=== PATIENT | female | born 1990 | race Caucasian/White ===

== ENCOUNTER 2019-01-05 06:43 | Emergency (ER) | payer MEDICAID, SELFPAY ==
[2019-01-05 06:45] VITALS: BP 139/76; PULSE 85; RESP 18; TEMP 36.5; O2SAT 96
[2019-01-05 06:49] VITALS: BP 139/76; PULSE 85; RESP 18; TEMP 36.5; O2SAT 96; BMI 38.4
--- NOTE | 2019-01-05 06:53 | XR_ITS ---
XR chest 2V HISTORY: ITS.REASON: cough ORDERING PHYSICIAN: Anthony Solis MD PATIENT AGE: 28 years COMPARISON: 11/04/2016 FINDINGS: The cardiomediastinal silhouette and pulmonary vascularity are within normal limits. The lungs are clear without infiltrates, suspicious nodules, or pleural effusions. No acute bony abnormalities. IMPRESSION: Negative chest, no acute finding
[2019-01-05 07:05] VITALS: PULSE 78; PULSE 81
[2019-01-05 07:06] LABS: Microscopic, Urine URINE MICROSCOPIC (MICROSCOPIC)
[2019-01-05 07:08] LABS: Appearance,Urine CLEAR (Clear); Bilirubin,Urine Negative (Negative); Blood, Urine Negative (Negative); Color,Urine YELLOW (Yellow); Glucose,Urine (UA) Negative (Negative); Ketones,Urine Negative (Negative); Leukocyte Esterase,Urine Negative (Negative); Nitrate,Urine Negative (Negative); Protein,Urine Negative (Negative); Specific Gravity, Urine 1.025 (1.005-1.030); Urobilinogen,Urine 0.2 EU/dl (0.2)
[2019-01-05 07:13] LABS: Urine Pregnancy, HCG Qual. Negative (Negative)
[2019-01-05 07:19] LABS: Bacteria,Urine Trace /lpf
[2019-01-05 07:24] LABS: Strep Scrn Group A (Rapid) Negative (Negative)
--- NOTE | 2019-01-05 07:28 | HMH.EDURI ---
ED Disposition Clinical Impression: Bronchitis Disposition: Home, Self-Care Condition on Discharge: Good Instructions: DI for Acute Bronchitis Additional Instructions: fluids and please stop smoking and use meds Prescriptions: predniSONE [Prednisone 20mg Tab] 20 mg PO BID #10 tab Benzonatate [Tessalon Perle 100mg Cap] 100 mg PO TID #30 cap Azithromycin [Zithromax 250mg tab] 250 mg PO DIRECTED #6 tab Referrals: Anthony Solis MD [Primary Care Provider] - - Critical Care Critical Care Time: No Attestation: On 01/05/19, the high probability of a clinically significant, sudden or life threatening deterioration of the following system(s) required my full and direct attention, intervention and personal management. The time I documented below is in addition to time spent performing reported procedures but includes the following listed in this critical care notation. Medical Decision Making - Medical Records Medical records reviewed: Yes: I reviewed the patient's medical records. - Eddie Inquiry Pt receiving controlled substance: No Vital Signs: 01/05/19 06:45 01/05/19 06:49 01/05/19 07:05 Temperature 97.7 F 97.7 F Temperature Source Oral Oral Pulse Rate 81 Pulse Rate [Right Radial] 85 85 Respiratory Rate 18 18 Blood Pressure [Right Arm] 139/76 139/76 Blood Pressure Mean [Right Arm] 97 97 02 Sat by Pulse Oximetry 96 96 - Lab Data Lab results reviewed: Yes: I reviewed the patient's lab results. Lab Results 01/05/19 07:00: Urine Color Yellow, Urine Appearance Clear, Urine pH 6.0, Ur Specific [place] 1.025, Urine Protein Negative, Urine Glucose (UA) Negative, Urine Ketones Negative, Urine Blood Negative, Urine Nitrate Negative, Urine Bilirubin Negative, Urine Urobilinogen 0.2, Ur Leukocyte Esterase Negative, Urine RBC None, Urine WBC None, Ur Squamous Epith Cells 5-10, Urine Bacteria Trace 01/05/19 07:00: Urine HCG, Qual Negative 01/05/19 07:00: Influenza Type A Ag Negative, Influenza Type B Ag Negative 01/05/19 07:00: Group A Strep Rapid Negative Orders (Tests/Meds): ED MEDICATIONS Discontinued Medications Generic Name Dose Route Start Last Admin Trade Name Freq PRN Reason Stop Dose Admin Albuterol/Ipratropium 3 ml 01/05/19 06:54 01/05/19 07:05 Duoneb 3ml Neb IH 01/05/19 06:55 3 ml ONCE ONE Administration Methylprednisolone Sodium Succinate 125 mg 01/05/19 06:54 01/05/19 06:58 Solu-Medrol 125mg/2ml Vial IM 01/05/19 06:55 125 mg ONCE ONE Administration ORDERS Category Date Time Status XR chest 2V Stat Exams 01/05/19 06:53 Taken Strep Screen Confirmation Stat Micro 01/05/19 07:00 Received - Radiology Data #1 Image(s): Chest Image Reviewed: Yes I reviewed the patient's radiology image Preliminary Findings: Abnormal (perihilar changes ) URI/Sore Throat HPI - General Chief Complaint: Upper Respiratory Infection Stated Complaint: head and chest congestion has had fever Time Seen by Provider: 01/05/19 07:00 Mode of Arrival: Ambulatory Source of Information: Patient, Medical Record Limitations: No Limitations Description of Symptoms (Recalled from ER Triage Doc. by RN): pt states she has had cough, congestion, sore throat and fever up to 101 tonight. pt states she took tylenol earlier for her fever and it came down. - History of Present Illness MD Complaint: cough, nasal congestion Onset (ago): day(s) Severity: moderate Able to tolerate fluids by mouth: Yes Associated symptoms: denies other symptoms Treatments prior to arrival: acetaminophen - Related Data Home Medications Medication Instructions Recorded Confirmed Albuterol Sulfate [Albuterol HFA 2 puffs IH Q6HP PRN 10/14/18 01/05/19 Inhaler] Previous Rx's Medication Instructions Recorded Azithromycin [Zithromax 250mg 250 mg PO DIRECTED #6 tab 01/05/19 tab] Benzonatate [Tessalon Perle 100mg 100 mg PO TID #30 cap 01/05/19 Cap] pr
--- NOTE | 2019-01-05 07:37 | ED_ITS ---
ED Disposition Clinical Impression: Bronchitis Disposition: Home, Self-Care Condition on Discharge: Good Instructions: DI for Acute Bronchitis Additional Instructions: fluids and please stop smoking and use meds Prescriptions: predniSONE [Prednisone 20mg Tab] 20 mg PO BID #10 tab Benzonatate [Tessalon Perle 100mg Cap] 100 mg PO TID #30 cap Azithromycin [Zithromax 250mg tab] 250 mg PO DIRECTED #6 tab Referrals: Anthony Solis MD [Primary Care Provider] - - Critical Care Critical Care Time: No Attestation: On 01/05/19, the high probability of a clinically significant, sudden or life threatening deterioration of the following system(s) required my full and direct attention, intervention and personal management. The time I documented below is in addition to time spent performing reported procedures but includes the following listed in this critical care notation. Medical Decision Making - Medical Records Medical records reviewed: Yes: I reviewed the patient's medical records. - Eddie Inquiry Pt receiving controlled substance: No Vital Signs: 01/05/19 06:45 01/05/19 06:49 01/05/19 07:05 Temperature 97.7 F 97.7 F Temperature Source Oral Oral Pulse Rate 81 Pulse Rate [Right Radial] 85 85 Respiratory Rate 18 18 Blood Pressure [Right Arm] 139/76 139/76 Blood Pressure Mean [Right Arm] 97 97 02 Sat by Pulse Oximetry 96 96 - Lab Data Lab results reviewed: Yes: I reviewed the patient's lab results. Lab Results 01/05/19 07:00: Urine Color Yellow, Urine Appearance Clear, Urine pH 6.0, Ur Specific [place] 1.025, Urine Protein Negative, Urine Glucose (UA) Negative, Urine Ketones Negative, Urine Blood Negative, Urine Nitrate Negative, Urine Bilirubin Negative, Urine Urobilinogen 0.2, Ur Leukocyte Esterase Negative, Urine RBC None, Urine WBC None, Ur Squamous Epith Cells 5-10, Urine Bacteria Trace 01/05/19 07:00: Urine HCG, Qual Negative 01/05/19 07:00: Influenza Type A Ag Negative, Influenza Type B Ag Negative 01/05/19 07:00: Group A Strep Rapid Negative Orders (Tests/Meds): ED MEDICATIONS Discontinued Medications Generic Name Dose Route Start Last Admin Trade Name Freq PRN Reason Stop Dose Admin Albuterol/Ipratropium 3 ml 01/05/19 06:54 01/05/19 07:05 Duoneb 3ml Neb IH 01/05/19 06:55 3 ml ONCE ONE Administration Methylprednisolone Sodium Succinate 125 mg 01/05/19 06:54 01/05/19 06:58 Solu-Medrol 125mg/2ml Vial IM 01/05/19 06:55 125 mg ONCE ONE Administration ORDERS Category Date Time Status XR chest 2V Stat Exams 01/05/19 06:53 Taken Strep Screen Confirmation Stat Micro 01/05/19 07:00 Received - Radiology Data #1 Image(s): Chest Image Reviewed: Yes I reviewed the patient's radiology image Preliminary Findings: Abnormal (perihilar changes ) URI/Sore Throat HPI - General Chief Complaint: Upper Respiratory Infection Stated Complaint: head and chest congestion has had fever Time Seen by Provider: 01/05/19 07:00 Mode of Arrival: Ambulatory Source of Information: Patient, Medical Record Limitations: No Limitations Description of Symptoms (Recalled from ER Triage Doc. by RN): pt states
[2019-01-05 07:45] VITALS: BP 146/86; PULSE 86; RESP 18; TEMP 36.3; O2SAT 100
== END 2019-01-05 07:46 | disposition home or self-care (01) ==
PROVIDERS: Emergency Provider Emergency Medicine; PCP Emergency Medicine
DX: J20.9 Acute bronchitis, unspecified (principal); F17.210 Nicotine dependence, cigarettes, uncomplicated
CPT/HCPCS: 71046; 81001; 81025; 87275; 87276; 87430; 96372; 99283

== ENCOUNTER → 2019-01-12 13:20 | Outpatient (CLI) | payer MEDICAID, SELFPAY ==
[2019-01-12 14:01] LABS: Basophils # 0.1 K/mm3 (0-0.2); Basophils % 0.6 % (0.1-2.0); Eosinophils # 0.2 K/mm3 (0.0-0.4); Eosinophils % 1.8 % (0.1-12.0); Hematocrit 47.2 % (37.0-47.0); Hemoglobin 14.9 g/dL (12.2-16.2); Lymphocytes # 3.4 K/mm3 (0.7-4.5); Lymphocytes % 37.4 % (10-50); Mean Corpuscular HGB Conc 31.7 g/dL (31.8-35.4); Mean Corpuscular Hemoglobin 28.3 pg (27.0-31.2); Mean Corpuscular Volume 89.4 fl (81-99); Mean Platelet Volume 8.3 fl (7.4-10.4); Monocytes # 0.5 K/mm3 (0.1-1.0); Monocytes % 5.8 % (1.7-9.3); Neutrophils % 54.5 % (37.0-80.0); Platelet Count 360 K/mm3 (142-424); Red Blood Count 5.28 M/mm3 (4.20-5.40); White Blood Count 9.2 K/mm3 (4.8-10.8)
[2019-01-12 15:04] LABS: Alanine Aminotransferase 47 U/L (12-78); Albumin Level 3.6 gm/dL (3.4-5.0); Albumin/Globulin Ratio 1.3 (1.1-1.8); Alkaline Phosphatase 102 U/L (46-116); Anion Gap 13.1 mEq/L (5-15); Aspartate Amino Transferase 19 U/L (15-37); Bilirubin,Total 0.4 mg/dL (0.2-1.0); Blood Urea Nitrogen 12 mg/dL (7-18); Calcium 8.6 mg/dL (8.5-10.1); Carbon Dioxide 26 mmol/L (21.0-32.0); Chloride 105 mmol/L (98-107); Chol/HDL Ratio 2.3 (1-3.5); Cholesterol 154 mg/dL (140-200); Creatinine,Serum 0.71 mg/dL (0.55-1.02); Estimated Glomerular Filt Rate 100 ml/min (>60); Free T4 (Free Thyroxine) 1.02 ng/dl (0.76-1.46); GFR (African American) 120 ML/MIN (>60); Globulin 2.8 gm/dl (1.3-3.2); Glucose 93 mg/dL (74-106); HDL Cholesterol 68 mg/dL (29-89); LDL Cholesterol 78 mg/dL (0-130); Potassium 4.1 mmoL/L (3.5-5.1); Sodium 140 mmol/L (136-145); Thyroid Stimulating Hormone 1.37 uIU/ml (0.358-3.740); Total Protein,Serum 6.4 gm/dL (6.4-8.2); Triglycerides 42 mg/dL (30-200); VLDL Cholesterol 8 mg/dL (0-40)
[2019-01-14 20:44] LABS: Vitamin D 25 Hydroxy 30.1 ng/mL (30.0-100.0)
== END ==
PROVIDERS: Visit Provider Emergency Medicine
DX: R53.83 Other fatigue (principal)
CPT/HCPCS: 80053; 80061; 82652; 84439; 84443; 85025

== ENCOUNTER → 2020-01-18 15:46 | Outpatient (CLI) | payer MEDICAID, SELFPAY ==
[2020-01-18 18:13] LABS: HCG Qualitative, Serum Negative (Negative)
== END ==
PROVIDERS: Visit Provider Nurse Practitioner Obstetrics & Gynecology
DX: Z34.90 Encounter for supervision of normal pregnancy, unspecified, unspecified trimester (principal)
CPT/HCPCS: 36415; 84703

== ENCOUNTER 2020-02-29 23:00 | Emergency (ER) | payer MEDICAID, SELFPAY ==
[2020-02-29 23:12] VITALS: BP 126/60; PULSE 86; RESP 16; TEMP 36.9; O2SAT 98; BMI 39.2
--- NOTE | 2020-02-29 23:35 | HMH.EDWNDL ---
ED Disposition Clinical Impression: Laceration Disposition: Home, Self-Care Condition on Discharge: Good Instructions: DI for Laceration Repair Additional Instructions: suture out 8-10 days Referrals: Anthony Solis MD [Primary Care Provider] - - Critical Care Critical Care Time: No Attestation: On 02/29/20, the high probability of a clinically significant, sudden or life threatening deterioration of the following system(s) required my full and direct attention, intervention and personal management. The time I documented below is in addition to time spent performing reported procedures but includes the following listed in this critical care notation. Medical Decision Making - Medical Records Medical records reviewed: Yes: I reviewed the patient's medical records. - Eddie Inquiry Pt receiving controlled substance: No Vital Signs: 02/29/20 23:12 Temperature 98.5 F Temperature Source Oral Pulse Rate [Right] 86 Respiratory Rate 16 Blood Pressure [Right Arm] 126/60 Blood Pressure Mean [Right Arm] 82 Blood Pressure Source [Right Arm] Automatic Cuff Blood Pressure Position [Right Arm] Sitting 02 Sat by Pulse Oximetry 98 Oxygen Delivery Method Room Air Orders (Tests/Meds): ED MEDICATIONS Discontinued Medications Generic Name Dose Route Start Last Admin Trade Name Freq PRN Reason Stop Dose Admin Tetanus/Diphtheria Toxoids 0.5 ml 02/29/20 23:20 02/29/20 23:24 Tenivac 0.5ml Syringe IM 02/29/20 23:21 0.5 ml .ONCE ONE Administration Wound/Laceration HPI - General Chief Complaint: Wound/Laceration Stated Complaint: AO 02/29/20 22:30 lacertion left hand Time Seen by Provider: 02/29/20 23:20 Mode of Arrival: Ambulatory Source of Information: Patient, Medical Record Limitations: No Limitations Description of Symptoms (Recalled from ER Triage Doc. by RN): Pt had nail give her a lac between pinky and ring fingers on left hand, bleeding is controlled at this time. - History of Present Illness HPI narrative: lac lt hand at work -1 cm Onset (ago): hour(s) Extremity Location: Left: hand Place: work Patient tetanus UTD: No Context: accidental Associated symptoms: none - Related Data Home Medications Medication Instructions Recorded Confirmed Albuterol Sulfate [Albuterol HFA 2 puffs IH Q6HP PRN 10/14/18 02/29/20 Inhaler] Allergies Allergy/AdvReac Type Severity Reaction Status Date / Time Penicillins [PENICILLINS] Allergy Intermediate I-HIVES Verified 05/18/19 14:00 From MUSHROOMS (FOOD/DRUG) Allergy Intermediate I-HIVES Uncoded 05/11/19 14:12 RASPBERRY (FOOD) Allergy Intermediate I-HIVES Uncoded 05/11/19 14:12 [facility] History - Hepatitis A Screen Drug use history?: No High risk sexual behaviors?: No History of sexually transmitted infection?: No Currently employed?: No Childcare worker?: No Do you have indoor plumbing?: Yes Do you have electricity?: Yes Attestation statement:: This patient has been screened for Hepatitis A risk factors. I have reviewed the patient's past medical history: Yes Medical History: Reports:: Asthma Denies:: Cancer, Diabetes Mellitus Type 1, Diabetes Mellitus Type 2, MRSA Comment: pcos Laterality Cases: Left: Arthroscopy Knee Other Surgeries: Yes: Other Amputation: No Fractures: No Comment: wisdom teeth - Social History Smoking Status: Current every day smoker Tobacco Type: cigarettes # Packs/Day (cigarettes): 1 Alcohol Intake: never Alcohol Intake Frequency:: a few times a month Substance Use Type: marijuana Last Used Substance: unknown Occupational Status: employed Housing: apartment Family Hx:: Asthma, Cancer, Diabetes, Heart Attack, Hypertension ROS Obtained: Yes All systems reviewed & no additional complaints - Constitutional Constitutional: Denies fever(s) - Eyes Eyes: Denies change in vision - ENT Ears, Nose, Mouth, and Throat: Denies sore throat - Cardiovascular Cardiovascular: Denies ches
--- NOTE | 2020-02-29 23:35 | PC.NURSE ---
Lab at bedside to collect UDS for workman comp.
[2020-02-29 23:37] VITALS: BP 128/64; PULSE 82; RESP 16; TEMP 36.9; O2SAT 99
== END 2020-02-29 23:50 | disposition home or self-care (01) ==
PROVIDERS: Emergency Provider Emergency Medicine; PCP Emergency Medicine
DX: S61.412A Laceration without foreign body of left hand, initial encounter (principal); W45.0XXA Nail entering through skin, initial encounter; Y92.69 Other specified industrial and construction area as the place of occurrence of the external cause; Y99.0 Civilian activity done for income or pay; Z23 Encounter for immunization; F17.210 Nicotine dependence, cigarettes, uncomplicated
CPT/HCPCS: 12001; 90471; 90714; 99282

== ENCOUNTER 2020-03-25 06:53 | Emergency (ER) | payer MEDICAID, SELFPAY ==
[2020-03-25 06:56] VITALS: BP 118/78; PULSE 68; RESP 16; TEMP 36.7; O2SAT 98; BMI 39.9
--- NOTE | 2020-03-25 07:10 | HMH.EDGENADL ---
ED Disposition Clinical Impression: Pain, dental, Gingival disease, Obesity (BMI 30-39.9) Disposition: Home, Self-Care Condition on Discharge: Good Instructions: DI for Dental Pain Additional Instructions: use meds and see pcp and dentist for follow up Prescriptions: clindamycin HCL [Clindamycin HCl 300mg Cap] 300 mg PO Q8 #21 cap Transmission Status: Pending to [facility] #[id number] Referrals: nAthony Solis MD [Primary Care Provider] - - Critical Care Critical Care Time: No Attestation: On 03/25/20, the high probability of a clinically significant, sudden or life threatening deterioration of the following system(s) required my full and direct attention, intervention and personal management. The time I documented below is in addition to time spent performing reported procedures but includes the following listed in this critical care notation. Medical Decision Making - Medical Records Medical records reviewed: Yes: I reviewed the patient's medical records. - Eddie Inquiry Pt receiving controlled substance: No Vital Signs: 03/25/20 06:56 Temperature 98.1 F Temperature Source Oral Pulse Rate [Left Radial] 68 Respiratory Rate 16 Blood Pressure [Right Arm] 118/78 Blood Pressure Mean [Right Arm] 91 Blood Pressure Position [Right Arm] Sitting 02 Sat by Pulse Oximetry 98 Oxygen Delivery Method Room Air - Lab Data Lab results reviewed: Yes: I reviewed the patient's lab results. General Adult HPI - General Chief complaint: PAIN Stated complaint: two teeth extracted on . 03/22 now in pain Time Seen by Provider: 03/25/20 07:10 Mode of Arrival: Ambulatory Source of Information: Patient, Medical Record Limitations: No Limitations Description of Symptoms (Recalled from ER Triage Doc. by RN): to ed per pvt with c/o pain and swelling lt lower jaw area states teeth extracted . denies fever chills nausea, vomiting - History of Present Illness HPI narrative: recent dental extraction and has pain and swelling - no other c/o Onset (ago): day(s) Severity: moderate Associated symptoms: denies other symptoms Treatments prior to arrival: none - Related Data Previous Rx's Medication Instructions Recorded albuterol sulfate 90 mcg/actuation 2 puff INHALATION Q6HP PRN #18 g 03/21/20 aerosol inhaler bupropion HCl 75 mg tablet 75 mg PO BID #60 tab 03/21/20 metformin 500 mg tablet 500 mg PO DAILY #90 tab 03/21/20 phentermine 37.5 mg tablet 37.5 mg PO DAILY #30 tab 03/21/20 clindamycin HCL [Clindamycin HCl 300 mg PO Q8 #21 cap 03/25/20 300mg Cap] Allergies Allergy/AdvReac Type Severity Reaction Status Date / Time Penicillins [PENICILLINS] Allergy Intermediate I-HIVES Verified 03/21/20 11:15 From MUSHROOMS (FOOD/DRUG) Allergy Intermediate I-HIVES Uncoded 03/21/20 11:15 RASPBERRY (FOOD) Allergy Intermediate I-HIVES Uncoded 03/21/20 11:15 [facility] History - Hepatitis A Screen Drug use history?: No High risk sexual behaviors?: No History of sexually transmitted infection?: No Currently employed?: No Childcare worker?: No Do you have indoor plumbing?: Yes Do you have electricity?: Yes Attestation statement:: This patient has been screened for Hepatitis A risk factors. I have reviewed the patient's past medical history: Yes Medical History: Reports:: Asthma Denies:: Cancer, Diabetes Mellitus Type 1, Diabetes Mellitus Type 2, MRSA Comment: pcos Laterality Cases: Left: Arthroscopy Knee Other Surgeries: Yes: Other Amputation: No Fractures: No Comment: wisdom teeth - Social History Smoking Status: Current every day smoker Tobacco Type: cigarettes # Packs/Day (cigarettes): 1 Alcohol Intake: never Alcohol Intake Frequency:: a few times a month Substance Use Type: marijuana Occupational Status: employed Housing: apartment Family Hx:: Asthma, Cancer, Diabetes, Heart Attack, Hypertension ROS Obtained: Yes All systems reviewed & no additional complaints - Constit
[2020-03-25 07:29] VITALS: BP 135/74; PULSE 78; RESP 16; TEMP 36.6; O2SAT 98
== END 2020-03-25 07:30 | disposition home or self-care (01) ==
PROVIDERS: Emergency Provider Emergency Medicine; PCP Emergency Medicine
DX: K06.9 Disorder of gingiva and edentulous alveolar ridge, unspecified (principal); K08.89 Other specified disorders of teeth and supporting structures; E11.9 Type 2 diabetes mellitus without complications; J45.909 Unspecified asthma, uncomplicated; F17.210 Nicotine dependence, cigarettes, uncomplicated; Z88.0 Allergy status to penicillin; Z79.899 Other long term (current) drug therapy; E66.9 Obesity, unspecified; Z68.39 Body mass index [BMI] 39.0-39.9, adult
CPT/HCPCS: 99281

== ENCOUNTER 2020-04-27 02:33 | Emergency (ER) | payer MEDICAID, SELFPAY ==
[2020-04-27 02:34] VITALS: BP 133/72; PULSE 85; RESP 16; TEMP 37.1; O2SAT 98; BMI 38.4
[2020-04-27 02:59] VITALS: BMI 38.4
--- NOTE | 2020-04-27 03:04 | XR_ITS ---
PROCEDURE: XR CHEST 2V CLINICAL HISTORY: soa Shortness of air, congestion, smoker COMPARISON: CR CXR CHEST(2 VIEWS-NOT PORTABLE) from 09/20/2014 CR CXR CHEST(2 VIEWS-NOT PORTABLE) from 11/04/2016 CR Chest from 01/05/[address] ABDOMEN PELVIS W CON from 03/27/2019 FINDINGS: The cardiomediastinal silhouette and pulmonary vascularity are within normal limits. There is an 8 mm opacity overlying the right lower lobe. The remaining lungs are clear. No acute bony abnormalities. IMPRESSION: 1. No acute finding. 2. 8 mm right lower lobe nodule. This may correspond to a nodular opacity seen on prior CT of the abdomen. Stability may be confirmed with follow-up CT. Dictated by: Raoul Morgan MD 04/27/2020 06:14 Raoul Morgan MD in [place] 04/27/2020 06:14
[2020-04-27 03:10] LABS: Basophils # 0.1 K/mm3 (0-0.2); Basophils % 0.4 % (0.1-2.0); Eosinophils # 0.2 K/mm3 (0.0-0.4); Eosinophils % 1.6 % (0.1-12.0); Hematocrit 48.7 % (37.0-47.0); Hemoglobin 16.9 g/dL (12.2-16.2); Lymphocytes % 6.9 % (10-50); Mean Corpuscular HGB Conc 34.7 g/dL (31.8-35.4); Mean Corpuscular Hemoglobin 30.4 pg (27.0-31.2); Mean Corpuscular Volume 87.8 fl (81-99); Mean Platelet Volume 8.1 fl (7.4-10.4); Monocytes # 0.5 K/mm3 (0.1-1.0); Monocytes % 3.4 % (1.7-9.3); Neutrophils # 13.1 K/mm3 (1.8-7.8); Neutrophils % 87.7 % (37.0-80.0); Platelet Count 253 K/mm3 (142-424); Red Blood Count 5.55 M/mm3 (4.20-5.40); Red Cell Distribution Width 13.3 % (11.5-17.5); White Blood Count 14.9 K/mm3 (4.8-10.8)
[2020-04-27 03:15] LABS: Alanine Aminotransferase 36 U/L (12-78); Albumin Level 4.7 g/dl (3.5-5.0); Albumin/Globulin Ratio 1.6 (1.1-1.8); Alkaline Phosphatase 99 U/L (38-126); Anion Gap 12.9 mEq/L (5-15); Aspartate Amino Transferase 33 U/L (14-36); Bilirubin,Total 0.6 mg/dl (0.2-1.3); Blood Urea Nitrogen 8 mg/dl (7-17); Calcium 9.8 mg/dl (8.4-10.2); Carbon Dioxide 25 mmol/L (22.0-30.0); Chloride 103 mmol/L (98-107); Creatinine Clearance Estimated 262 mL/min (50-200); Estimated Glomerular Filt Rate 120 ml/min (>60); GFR (African American) 145 ML/MIN (>60); Glucose 139 mg/dl (74-100); MANUAL DIFFERENTIAL MANUAL DIFFERENTIAL (MANUAL DIFF); Potassium 3.9 mmoL/L (3.5-5.1); Sodium 137 mmol/L (136-145); Total Protein,Serum 7.7 g/dl (6.3-8.2)
[2020-04-27 03:18] LABS: Urine Pregnancy, HCG Qual. Negative (Negative)
[2020-04-27 03:22] LABS: Strep Scrn Group A (Rapid) Negative (Negative)
[2020-04-27 03:27] LABS: Eosinophils % 2 % (0-3); Lymphocytes % 17 % (10-50); Monocytes % 6 % (2-9); Neutrophils % 74 % (42-76); Platelet Estimate Normal; RBC Morphology Normal; Total Cells Counted 100
[2020-04-27 03:34] VITALS: BP 129/83; PULSE 73; RESP 16; TEMP 37.4; O2SAT 99
--- NOTE | 2020-04-27 04:03 | HMH.EDURI ---
ED Disposition Clinical Impression: Pharyngitis Qualifiers: Pharyngitis/tonsillitis etiology: unspecified etiology Qualified Code(s): J02.9 - Acute pharyngitis, unspecified Disposition: Home, Self-Care Condition on Discharge: Good Instructions: DI for Acute Bronchitis Additional Instructions: fids and see pcp for follow up Prescriptions: levoFLOXacin [Levaquin 500mg tab] 500 mg PO DAILY #7 tab Transmission Status: Pending to [facility] #[id number] Referrals: Anthnoy Solis MD [Primary Care Provider] - - Critical Care Critical Care Time: No Attestation: On 04/27/20, the high probability of a clinically significant, sudden or life threatening deterioration of the following system(s) required my full and direct attention, intervention and personal management. The time I documented below is in addition to time spent performing reported procedures but includes the following listed in this critical care notation. Medical Decision Making - Medical Records Medical records reviewed: Yes: I reviewed the patient's medical records. - Eddie Inquiry Pt receiving controlled substance: No Vital Signs: 04/27/20 02:34 04/27/20 03:34 Temperature 98.7 F 99.4 F Temperature Source Oral Oral Pulse Rate [Right Radial] 85 73 Respiratory Rate 16 16 Blood Pressure [Right Arm] 133/72 129/83 Blood Pressure Mean [Right Arm] 92 98 Blood Pressure Source [Right Arm] Automatic Cuff Automatic Cuff Blood Pressure Position [Right Arm] Sitting Supine 02 Sat by Pulse Oximetry 98 99 Oxygen Delivery Method Room Air Room Air - Lab Data Lab results reviewed: Yes: I reviewed the patient's lab results. Lab Results 04/27/20 02:46: Influenza Type A Ag Negative, Influenza Type B Ag Negative 04/27/20 02:46: Group A Strep Rapid Negative 04/27/20 02:56: WBC 14.9 H, RBC 5.55 H, Hgb 16.9 H, Hct 48.7 H, MCV 87.8, MCH 30.4, MCHC 34.7, RDW 13.3, Plt Count 253, MPV 8.1, Neut % (Auto) 87.7 H, Lymph % (Auto) 6.9 L, [place] % (Auto) 3.4, Eos % (Auto) 1.6, Baso % (Auto) 0.4, Neut # (Auto) 13.1 H, Lymph # (Auto) 1.0, [place] # (Auto) 0.5, Eos # (Auto) 0.2, Baso # (Auto) 0.1, Total Counted 100, Neutrophils % (Manual) 74, Lymphocytes % (Manual) 17, Monocytes % (Manual) 6, Eosinophils % (Manual) 2, Basophils % (Manual) 1.0, Platelet Estimate Normal, RBC Morphology Normal 04/27/20 02:56: Sodium 137, Potassium 3.9, Chloride 103, Carbon Dioxide 25, Anion Gap 12.9, BUN 8, Creatinine 0.60, Estimated Creat Clear 262, Estimated GFR 120, Est GFR ( Amer) 145, Glucose 139 H, Calcium 9.8, Total Bilirubin 0.6, AST 33, ALT 36, Alkaline Phosphatase 99, Total Protein 7.7, Albumin 4.7, Globulin 3.0, Albumin/Globulin Ratio 1.6 04/27/20 03:09: Urine HCG, Qual Negative Result diagrams: 04/27/20 02:56 04/27/20 02:56 Orders (Tests/Meds): ED MEDICATIONS Generic Name Dose Route Start Last Admin Trade Name Freq PRN Reason Stop Dose Admin Sodium Chloride 1,000 mls @ 999 mls/hr 04/27/20 03:45 04/27/20 03:37 Sod Chlor 0.9% 1000ml Bag IV 04/27/20 04:45 999 mls/hr .Q1H1M FRANCES Administration Levofloxacin 500 mg 04/27/20 04:14 Levaquin 500mg Tab PO 04/27/20 04:15 ONCE ONE Protocol ORDERS Category Date Time Status XR chest 2V Stat Exams 04/27/20 03:04 Taken Covid-19 Nasal PCR Sendout [facility] Stat Lab 04/27/20 03:25 Received Strep Screen Confirmation Stat Micro 04/27/20 02:46 Received - Radiology Data #1 Image(s): Chest Image Reviewed: Yes I reviewed the patient's radiology image Preliminary Findings: Normal/NAD URI/Sore Throat HPI - General Chief Complaint: Upper Respiratory Infection Stated Complaint: sore throat,SOA,vomiting,weakness Time Seen by Provider: 04/27/20 03:00 Mode of Arrival: Ambulatory Source of Information: Patient, Medical Record Limitations: No Limitations Description of Symptoms (Recalled from ER Triage Doc. by RN): Pt presents with c/o sore throat, congestion, nausea, productive cough, and fatigue
[2020-04-27 04:41] VITALS: BP 137/68; PULSE 85; RESP 18; TEMP 37.2; O2SAT 100
[2020-04-29 12:50] LABS: Covid-19 Nasal PCR Sendout Lex NOT DETECTED
== END 2020-04-27 04:46 | disposition home or self-care (01) ==
PROVIDERS: Emergency Provider Emergency Medicine; PCP Emergency Medicine
DX: J02.9 Acute pharyngitis, unspecified (principal); J45.909 Unspecified asthma, uncomplicated; E11.9 Type 2 diabetes mellitus without complications; Z20.828 Contact with and (suspected) exposure to other viral communicable diseases; Z79.84 Long term (current) use of oral hypoglycemic drugs; Z88.0 Allergy status to penicillin
CPT/HCPCS: 71046; 80053; 81025; 85007; 85025; 87275; 87276; 87430; 96365; 99284; U0004

== ENCOUNTER 2023-01-04 23:41 | Emergency (ER) | payer MEDICAID, SELFPAY ==
[2023-01-04 23:41] VITALS: BP 142/87; PULSE 76; RESP 18; TEMP 36.8; O2SAT 100; BMI 39.9
[2023-01-04 23:42] VITALS: BMI 39.9
--- NOTE | 2023-01-04 23:44 | XR_ITS ---
PROCEDURE INFORMATION: Exam: XR Chest Exam date and time: 01/05/2023 12:11 AM Age: 32 years old Clinical indication: Pain; Chest pressure; Additional info: Cp TECHNIQUE: Imaging protocol: Radiologic exam of the chest. Views: 2 views. COMPARISON: CR XR CHEST 2V 04/27/2020 3:19 AM FINDINGS: Lungs: Unremarkable. No consolidation. Pleural spaces: Unremarkable. No pleural effusion. No pneumothorax. Heart/Mediastinum: Unremarkable. No cardiomegaly. Bones/joints: Unremarkable. IMPRESSION: No acute findings.
--- NOTE | 2023-01-04 23:44 | CT_ITS ---
PROCEDURE INFORMATION: Exam: CTA Chest With Contrast Exam date and time: 01/05/2023 12:26 AM Age: 32 years old Clinical indication: Chest wall pain; Additional info: Chest pain, SOA TECHNIQUE: Imaging protocol: Computed tomographic angiography of the chest with contrast. Exam focused on the arteries. 3D rendering (Not supervised by radiologist): MIP and/or 3D reconstructed images were created by the technologist. Radiation optimization: All CT scans at this facility use at least one of these dose optimization techniques: automated exposure control; mA and/or kV adjustment per patient size (includes targeted exams where dose is matched to clinical indication); or iterative reconstruction. Contrast material: ISOVUE; Contrast volume: 70 ml; Contrast route: INTRAVENOUS (IV); REPORTING DATA: Count of CT and Cardiac NM exams in prior 12 months: This patient has received 0 known CTs and 0 known cardiac nuclear medicine studies in the 12 months prior to the current study. COMPARISON: CR Chest 01/05/2023 12:11 AM FINDINGS: Pulmonary arteries: Normal. No pulmonary emboli. Aorta: Unremarkable. No aortic aneurysm. No aortic dissection. Lungs: Unremarkable. No consolidation. No masses. Pleural spaces: Unremarkable. No pneumothorax. No pleural effusion. Heart: Unremarkable. No cardiomegaly. No pericardial effusion. Lymph nodes: Unremarkable. No enlarged lymph nodes. Bones/joints: Moderate degenerative changes noted throughout the thoracic spine. Bones are otherwise unremarkable. Soft tissues: Unremarkable. IMPRESSION: No acute abnormality
--- NOTE | 2023-01-04 23:44 | ECG_ITS ---
APPROVED REPORT Exam: Resting ECG HR:84 bpm ECG Measurements Heart Rate 84 AXES AK 166 P 53 QRSd 99 QRS 121 QT 357 T 5 QTc 398 Conclusion SINUS RHYTHM WITH SINUS ARRHYTHMIA INDETERMINATE AXIS PATTERN CONSISTENT WITH PULMONARY DISEASE ABNORMAL ECG UNCONFIRMED REPORT Electronically signed by : David Rowe MD 01/06/2023 17:32:36
[2023-01-05] VITALS: PULSE 85
[2023-01-05 00:10] LABS: Basophils # 0.1 K/mm3 (0-0.2); Basophils % 0.6 % (0.1-2.0); Chloride 103 mmol/L (98-107); Eosinophils # 0.2 K/mm3 (0.0-0.4); Eosinophils % 1.6 % (0.1-12.0); Hematocrit 44.9 % (37.0-47.0); Hemoglobin 14.7 g/dL (12.2-16.2); Lymphocytes # 3.4 K/mm3 (0.7-4.5); Lymphocytes % 36.1 % (10-50); Mean Corpuscular HGB Conc 32.8 g/dL (31.8-35.4); Mean Corpuscular Hemoglobin 28.9 pg (27.0-31.2); Mean Corpuscular Volume 88.1 fl (81-99); Mean Platelet Volume 7.8 fl (7.4-10.4); Monocytes # 0.6 K/mm3 (0.1-1.0); Monocytes % 6.3 % (1.7-9.3); Neutrophils # 5.2 K/mm3 (1.8-7.8); Neutrophils % 55.3 % (37.0-80.0); Platelet Count 312 K/mm3 (142-424); Potassium 3.6 mmoL/L (3.5-5.1); Red Blood Count 5.09 M/mm3 (4.20-5.40); Red Cell Distribution Width 12.9 % (11.5-17.5); Sodium 139 mmol/L (136-145); White Blood Count 9.4 K/mm3 (4.8-10.8)
[2023-01-05 00:12] LABS: Blood Urea Nitrogen 11 mg/dl (7-17); Creatinine Clearance Estimated 199 mL/min (50-200); Estimated Glomerular Filt Rate 84 ml/min (>60); GFR (African American) 102 ML/MIN (>60)
[2023-01-05 00:13] LABS: Alanine Aminotransferase 35 U/L (12-78); Alkaline Phosphatase 89 U/L (38-126); Anion Gap 10.6 mEq/L (5-15); Aspartate Amino Transferase 27 U/L (14-36); Bilirubin,Total < 0.1 mg/dl (0.2-1.3); Bilirubin,Unconjugated 0.1 mg/dL (0.0-1.1); Calcium 8.6 mg/dl (8.4-10.2); Carbon Dioxide 29 mmol/L (22.0-30.0); Glucose 78 mg/dl (74-100); HCG Qualitative, Serum Negative (Negative); Total Protein,Serum 6.6 g/dl (6.3-8.2)
[2023-01-05 00:18] LABS: C-Reactive Protein 3.1 mg/L (0-4)
[2023-01-05 00:19] LABS: Coronavirus 19, PCR Not Detected (NotDetected); Influenza A, PCR Not Detected (NotDetected); Influenza B, PCR Not Detected (NotDetected)
--- NOTE | 2023-01-05 00:19 | PC.NURSE ---
Pt gone to RAD via wheelchair
[2023-01-05 00:21] LABS: Microscopic, Urine URINE MICROSCOPIC (MICROSCOPIC)
[2023-01-05 00:24] LABS: Appearance,Urine CLEAR (Clear); Bilirubin,Urine Negative (Negative); Blood, Urine TRACE-I (Negative); Color,Urine YELLOW (Yellow); Glucose,Urine (UA) Negative (Negative); Ketones,Urine Negative (Negative); Leukocyte Esterase,Urine Negative (Negative); Nitrate,Urine Negative (Negative); Protein,Urine Negative (Negative); Specific Gravity, Urine 1.015 (1.005-1.030); Urobilinogen,Urine 0.2 EU/dl (0.2)
[2023-01-05 00:27] LABS: Troponin I < 0.01 ng/ml (0.00-0.034)
[2023-01-05 00:31] VITALS: BP 108/70; PULSE 77; RESP 14; O2SAT 98
[2023-01-05 00:32] LABS: Bacteria,Urine Trace /lpf
--- NOTE | 2023-01-05 00:32 | PC.NURSE ---
Pt returned from RAD
[2023-01-05 00:34] LABS: Bilirubin,Indirect 0.2 mg/dL (0.0-0.9)
[2023-01-05 00:36] LABS: Amphetamine/Metha Screen,Urine Negative ng/ml (<1000)
[2023-01-05 00:37] LABS: Barbiturates Screen,Urine Negative ng/ml (<200); Benzodiazepines Screen,Urine Negative ng/ml (<200)
[2023-01-05 00:38] LABS: Cannabinoid Screen,Urine Positive ng/ml (<50); Cocaine Screen,Urine Negative ng/ml (<300)
[2023-01-05 00:39] LABS: Methadone Screen,Urine Negative ng/ml (<300)
[2023-01-05 00:40] LABS: Opiate Screen,Urine Negative ng/ml (<300); Phencyclidine Screen,Urine Negative ng/ml (<25)
[2023-01-05 00:42] LABS: Erythrocyte Sedimentation Rate 7 mm/hr (0-20)
[2023-01-05 00:55] LABS: Procalcitonin 0.049 ng/mL (0.0-2.0)
--- NOTE | 2023-01-05 01:00 | HMH.EDCP ---
Discharge Plan Disposition Patient Disposition: Home, Self-Care Chief Complaint: Chest Pain Prescriptions Prescriptions: No Action albuterol sulfate 90 mcg/actuation HFA aerosol inhaler 2 puff INHALATION Q6HP PRN (Reason: Shortness Of Breath Or Wheezing) Qty: 18 2RF cetirizine [All Day Allergy (cetirizine)] 10 mg tablet 10 mg PO DAILY PRN (Reason: allergy symptoms) Qty: 30 2RF metformin 500 mg tablet 500 mg PO BID Qty: 180 0RF bupropion HCl 75 mg tablet See Rx Instructions .ROUTE .COMPLEX Qty: 180 0RF Dose Instruction: TAKE 1 TABLET BY MOUTH TWICE DAILY Rx Instructions: TAKE 1 TABLET BY MOUTH TWICE DAILY phentermine 37.5 mg tablet 37.5 mg PO DAILY Qty: 30 0RF Rx Instructions: must administer 30 minutes before or 1-2 hours after breakfast Referrals Follow up/Referrals: Anthony Solis MD [Primary Care Provider] - See instructions Clinical Impressions Clinical Impression: Atypical chest pain Instructions Patient Instructions: DI for Atypical Chest Pain Discharge ED Provider: Irma (ED)Anthony Chest Pain HPI General Chief Complaint: Chest Pain Stated Complaint: Chest Pain Time Seen by Provider: 01/05/23 01:00 Mode of Arrival: Ambulatory Source of Information: Patient and Medical Record Limitations: No Limitations Description of Symptoms (Recalled from ER Triage Doc. by RN): pt stated she has had a consisitant chest tightness for a week now the pt states that her boyfriend infront of her and she attempted cpr and initally thought the pain was from that. the pt states that the pain is more severe and that it radiates through her back and down the left arm. the pt reports anxiety and is not recieving treatment for it. History of Present Illness HPI narrative: has episodes of mid chest pain with rad to lt upper ext complaint: chest pain indicative of cardiac Onset (ago): hour(s) Duration: intermittent Activity at onset: during rest Pain location: substernal Severity: moderate Quality: sharp Pain radiation: LUE Risk Factors for CAD: Family Hx of CAD Treatments prior to or on arrival for Cardiac Chest Pain: none TORRES Score for Non-Stemi Age of Patient: 30-39 years old Heart Rate: 70-89 bpm Systolic Blood Pressure: 100-119 mmHg Serum Creatinine: 0.80-1.19 mg/dl CHF [place] Class: I-No CHF Other Risk Factors: None Non-Stemi Risk Score: 67 Risk Stratification: 1-108 = Low Risk Related Data Previous Rx's Medication Instructions Recorded albuterol sulfate 90 mcg/actuation 2 puff inhalation Q6HP PRN 07/27/20 aerosol inhaler Shortness Of Breath Or Wheezing #18 grams cetirizine 10 mg tablet (All Day 10 mg PO DAILY PRN allergy 10/19/20 Allergy (cetirizine)) symptoms #30 tabs bupropion HCl 75 mg tablet See Rx Instructions .Route 11/05/20 .COMPLEX #180 tabs metformin 500 mg tablet 500 mg PO BID #180 tabs 11/07/20 phentermine 37.5 mg tablet 37.5 mg PO DAILY Weight loss #30 12/05/20 tabs Allergies Allergy/AdvReac Type Severity Reaction Status Date / Time mushroom Allergy Intermediate Hives Verified 01/05/23 00:02 Penicillins [PENICILLINS] Allergy Intermediate I-HIVES Verified 01/05/23 00:02 raspberry Allergy Intermediate Hives Verified 01/05/23 00:02 PFSH [facility] Disclaimer: The information contained in this section may have been updated after the patient was seen, as this information can be updated by other users. Social History Smoking Status: Current every day smoker tobacco type: cigarettes packs per day: 1 alcohol intake: never substance use type: marijuana current occupational status: employed Travel in the last 8 weeks: None household members: other housing: house ROS Obtained: Yes All systems reviewed & no additional complaints except as documented Physical Exam General General appearance: alert Head Head exam: normocephalic Eye Eye exam: Present PERRL and EOMI ENT ENT exam: Present mucous membranes
[2023-01-05 01:01] VITALS: BP 117/72; PULSE 64; RESP 20; O2SAT 98
--- NOTE | 2023-01-05 01:05 | PC.NURSE ---
Dr. Solis at
[2023-01-05 01:07] VITALS: BP 117/72; PULSE 62; RESP 16; TEMP 36.8; O2SAT 98
[2023-01-06 11:34] LABS: Free T4 (Free Thyroxine) 1.42 ng/dl (0.78-2.19)
[2023-01-06 11:48] LABS: Thyroid Stimulating Hormone 1.36 uIU/mL (0.465-4.68)
== END 2023-01-05 01:27 | disposition home or self-care (01) ==
PROVIDERS: Emergency Provider Emergency Medicine; PCP Emergency Medicine
DX: R07.89 Other chest pain (principal); F17.210 Nicotine dependence, cigarettes, uncomplicated; M54.9 Dorsalgia, unspecified; M79.602 Pain in left arm
CPT/HCPCS: 71046; 71275; 80048; 80076; 80305; 81001; 84145; 84439; 84443; 84484; 84703; 85025; 85651; 86140; 87636; 93005; 96361; 96374; 99285; C9803; Q9967; U0003; U0005

== ENCOUNTER → 2023-03-09 10:29 | Outpatient (CLI) | payer MEDICAID, SELFPAY | PROVIDERS: PCP Student in an Organized Health Care Education/Training Program; Visit Provider Student in an Organized Health Care Education/Training Program | DX: L72.9 Follicular cyst of the skin and subcutaneous tissue, unspecified (principal); B96.4 Proteus (mirabilis) (morganii) as the cause of diseases classified elsewhere; B96.89 Other specified bacterial agents as the cause of diseases classified elsewhere | CPT/HCPCS: 87070; 87077; 87186; 87205 ==

== ENCOUNTER → 2023-04-27 11:39 | Outpatient (CLI) | payer MEDICAID, SELFPAY | PROVIDERS: PCP Nurse Practitioner Family; Visit Provider Nurse Practitioner Family | DX: J02.9 Acute pharyngitis, unspecified (principal); R09.89 Other specified symptoms and signs involving the circulatory and respiratory systems | CPT/HCPCS: 87070; 87635 ==

== ENCOUNTER 2023-06-23 07:50 | Emergency (ER) | payer MEDICAID, SELFPAY ==
[2023-06-23 07:51] VITALS: BP 140/85; PULSE 80; RESP 16; TEMP 36.4; O2SAT 97; BMI 44.3
--- NOTE | 2023-06-23 08:08 | HMH.EDGENADL ---
Discharge Plan Disposition Patient Disposition: Home, Self-Care Condition: Good Prescriptions Prescriptions: No Action prednisone 10 mg tablets,dose pack See Rx Instructions PO PER PKG DIR Qty: 21 0RF Rx Instructions: PO PER PKG DIR albuterol sulfate 90 mcg/actuation HFA aerosol inhaler 1 inh inhalation QID Qty: 6.7 2RF escitalopram oxalate [Lexapro] 10 mg tablet 10 mg PO DAILY Qty: 30 0RF clonazepam [Klonopin] 0.5 mg tablet 0.5 mg PO TID Qty: 90 0RF Referrals Follow up/Referrals: Anthony Solis MD [Primary Care Provider] - See instructions Activity Restrictions/Add. Instructions Additional Instructions/Restrictions: You were evaluated in the emergency department today for right knee pain. There is a questionable area that may be a Estrella's cyst, but we did not identify any fracture or DVT or other abnormality requiring further intervention at this time. You have been referred to orthopedics for reevaluation and consideration of MRI. Take Tylenol or ibuprofen if needed for pain, drink plenty of water and eat a snack when you take these medications. Do not exceed the recommended doses on the bottles. Continue taking home medications as previously prescribed, make an appointment with your primary care physician for reevaluation soon as possible, return to the emergency department with any new, worsening, or otherwise concerning symptoms. Clinical Impressions Clinical Impression: Acute pain of right knee Discharge ED Provider: Moshe Coburn Adult HPI General Chief complaint: Extremity Problem,Nontraumatic Stated complaint: AO10/14,Rt leg/hip pain Time Seen by Provider: 06/23/23 08:03 Mode of Arrival: Ambulatory Source of Information: Patient Limitations: No Limitations Description of Symptoms (Recalled from ER Triage Doc. by RN): Pt c/o R leg pain, burning pain behind knee with also sharp pain. Pt reports her leg feels tight the past 2 days. Pt does report a fall approx 1 month ago. History of Present Illness HPI narrative: This 32-year-old female with a history of anxiety and asthma presents to the emergency department with concerns of right knee pain. Patient states a few weeks ago she fell directly on the front of her knee. She states she has had intermittent worsening pain in the right knee. She states it faith behind the right knee and is the worst when she tries to make it completely straight. She states she did not get evaluated after the initial injury. She has a history of torn meniscus on the left and states the burning sensation is similar. Patient does think her right leg is slightly more swollen than her left. Related Data Previous Rx's Medication Instructions Recorded clonazepam 0.5 mg tablet (Klonopin) 0.5 mg PO TID #90 tabs 01/06/23 escitalopram oxalate 10 mg tablet 10 mg PO DAILY #30 tabs 01/06/23 (Lexapro) albuterol sulfate 90 mcg/actuation 1 inh inhalation QID #6.7 grams 04/27/23 aerosol inhaler prednisone 10 mg tablets in a dose See Rx Instructions PO PER PKG DIR 04/27/23 pack #21 tabs Allergies Allergy/AdvReac Type Severity Reaction Status Date / Time mushroom Allergy Intermediate Hives Verified 04/27/23 11:14 Penicillins [PENICILLINS] Allergy Intermediate I-HIVES Verified 04/27/23 11:14 raspberry Allergy Intermediate Hives Verified 04/27/23 11:14 [facility] Disclaimer: The information contained in this section may have been updated after the patient was seen, as this information can be updated by other users. Medical History (Updated 06/23/23 @ 08:57 by Moshe Coburn MD) Asthma Depression History of PCOS Surgical History (Updated 04/27/23 @ 11:16 by Barbra Burkett MA) No significant past surgical history Family History (Updated 04/27/23 @ 11:16 by Barbra Burkett MA) Family/Other No significant family history Social History Smoking Status: Never smoker alcohol
--- NOTE | 2023-06-23 08:15 | CA_ITS ---
FINAL REPORT TECHNIQUE: extremity venous duplex was performed with augmentation and compression. CLINICAL HISTORY: PAIN BEHIND RT KNEE X SEVERAL WKS,PT FELL SEVERAL WKS AGO AND HURT KNEE COMPARISON: None FINDINGS: RIGHT LEG VENOUS DOPPLER: Proper flow is seen throughout the deep venous system. There is no evidence of deep venous thrombosis. IMPRESSION: no deep venous thrombosis. Reviewed, Interpreted and Dictated by Ziyad Osman MD Transcribed by Nataliia Garcia Authenticated and [facility]
--- NOTE | 2023-06-23 08:15 | XR_ITS ---
FINAL REPORT CLINICAL HISTORY: pain, fall 1 month ago COMPARISON: None FINDINGS: RIGHT KNEE: There is no acute fracture or dislocation. The joint spaces are intact. There is no soft tissue abnormality. IMPRESSION: No acute fracture Reviewed, Interpreted and Dictated by Ziyad Osman MD Transcribed by Nataliia Garcia Authenticated and [facility]
--- NOTE | 2023-06-23 08:30 | PC.NURSE ---
doppler at bs
[2023-06-23 09:24] VITALS: BP 133/78; PULSE 84; RESP 20; TEMP 36.4; O2SAT 97
== END 2023-06-23 09:25 | disposition home or self-care (01) ==
PROVIDERS: Emergency Provider Emergency Medicine; PCP Emergency Medicine
DX: M25.561 Pain in right knee (principal); W19.XXXA Unspecified fall, initial encounter
CPT/HCPCS: 73562; 76882; 93971; 99284

== ENCOUNTER 2023-09-15 08:19 | Emergency (ER) | payer SELFPAY ==
--- NOTE | 2023-09-15 08:27 | XR_ITS ---
FINAL REPORT CLINICAL HISTORY: FALL, RIGHT LATERAL PAIN, SWELLING FINDINGS: RIGHT FOOT Three views demonstrate no acute fracture or dislocation. There is a plantar calcaneal spur. There are mild degenerative changes of the first metatarsophalangeal joint. No acute soft tissue abnormality is seen. IMPRESSION: No acute bony abnormality. Reviewed, Interpreted and Dictated by Geoffrey Donaldson III, MD Transcribed by Elicia Cunningham Authenticated and [facility]
--- NOTE | 2023-09-15 08:27 | XR_ITS ---
FINAL REPORT CLINICAL HISTORY: FALL, RIGHT LATERAL PAIN, SWELLING FINDINGS: RIGHT ANKLE Three views demonstrate no acute fracture or dislocation. The joint spaces appear normal. There is lateral soft tissue swelling. IMPRESSION: Soft tissue swelling with no acute bony abnormality Reviewed, Interpreted and Dictated by Geoffrey Donaldson III, MD Transcribed by Elicia Cunningham Authenticated and [facility]
[2023-09-15 08:30] VITALS: BP 140/90; PULSE 84; RESP 18; TEMP 36.5; O2SAT 98; BMI 45.3
--- NOTE | 2023-09-15 09:04 | ED_ITS ---
Discharge Plan Disposition Patient Disposition: Home, Self-Care Condition: Good Prescriptions Prescriptions: New ibuprofen [IBU] 800 mg tablet 800 mg PO Q8HP PRN (Reason: Moderate Pain) Qty: 30 0RF No Action albuterol sulfate 90 mcg/actuation HFA aerosol inhaler 1 inh inhalation QID Qty: 6.7 2RF Referrals Follow up/Referrals: Francisco Layton DO [Primary Care Provider] - See instructions Cora Welsh DPM [Staff Physician] - See instructions Activity Restrictions/Add. Instructions Additional Instructions/Restrictions: Rest the extremity, apply ice for 15 minutes as tolerated three or four times per day, Wear the sal wrap for compression, Elevate the extremity as tolerated while you are resting. Take ibuprofen for pain. I sent in a prescription to your pharmacy. Follow up with Dr. Welsh (podiatry). I put in a referral but you need to call her office and schedule an appointment. Follow up with your regular doctor. GO TO THE ER FOR ANY WORSENING SYMPTOMS Clinical Impressions Clinical Impression: Right ankle sprain, Right foot sprain Stand Alone Forms Stand Alone Forms: Work/School Release Instructions Patient Instructions: How to Use Crutches, DI for Ankle Sprain, DI for Foot Sprain Discharge ED Provider: Efren Sands [facility] General Stated complaint: ao 09/15/23 fell right ankle Mode of Arrival: Ambulatory Source of Information: Patient Limitations: No Limitations Time Seen by Provider: 09/15/23 09:03 Description of Symptoms (Recalled from Triage Doc. by RN): Pt was walking to her car and misstepped on a rock and hurt right ankle. There is swelling and bruising at site of ankle and top of foot. It happened this morning. HEENT Symptoms (Recalled from RN notes): No Resp Symptoms (Recalled from RN notes): No Skin Symptoms (Recalled from RN notes): No MS Symptoms (Recalled from RN notes): Yes Functional Status (Recalled from RN notes): n/a History of Present Illness Provider Complaint: She states that she twisted her right ankle and fell this morning. Since then she has had right ankle and foot pain and swelling. She denies any other injury. Related Data Previous Rx's Medication Instructions Recorded albuterol sulfate 90 mcg/actuation 1 inh inhalation QID #6.7 grams 09/18/23 aerosol inhaler ibuprofen 800 mg tablet (IBU) 800 mg PO Q8HP PRN Moderate Pain 09/15/23 #30 tabs Allergies Allergy/AdvReac Type Severity Reaction Status Date / Time mushroom Allergy Intermediate Hives Verified 09/15/23 09:00 Penicillins [PENICILLINS] Allergy Intermediate I-HIVES Verified 09/15/23 09:00 raspberry Allergy Intermediate Hives Verified 09/15/23 09:00 Worker's Comp Is this a Worker's Comp case?: No [facility] Disclaimer: The information contained in this section may have been updated after the patient was seen, as this information can be updated by other users. Medical History (Updated 09/15/23 @ 09:36 by Efren Sands APRN) Asthma Depression History of PCOS Surgical History No significant past surgical history Family History Family/Other No significant family history Social History Smoking Status: Never smoker alcohol intake: never substance use type: marijuana current occupational status: employed Travel in the last 8 weeks: None household members: other housing: house ROS Obtained: Yes All systems reviewed & no additional complaints except as documented Constitutional Constitutional: Denies chills and Denies fever(s) Eyes Eyes: Denies eye discharge ENT Ears, Nose, Mouth, and Throat: Denies dizziness, Denies otalgia and Denies sore throat Cardiovascular Cardiovascular: Denies chest pain Respiratory Respiratory: Denies shortness of breath, Denies chest congestion, Denies cough, Denies stridor and Denies wheezing Gastrointestinal Gastrointestingal: Denies nausea or vomiting Musculoskeletal Musculoskeletal: Reports as per HPI Integumentary/Breasts Skin/Breast: Denies rash Neurologic Neurologic: Denies dizziness and Denies paresthesias Allergic/Immunologic Allergic/Immunologic: Denies wheezing Physical Exam General General appearance: alert and in no apparent distress Head Head exam: atraumatic, normocephalic and normal inspection Eye Eye exam: Present normal appearance, PERRL and EOMI ENT ENT exam: Present normal exam, normal oropharynx, mucous membranes moist, TM's normal bilaterally and normal external ear exam Neck Neck exam: Present normal inspection, full ROM and trachea midline; Absent meningismus or lymphadenopathy Chest Chest inspection: Present normal inspection and symmetric chest wall rise; Absent tenderness Respiratory Respiratory exam: Present normal lung sounds bilaterally; Absent respiratory distress Cardiovascular Cardiovascular exam: Present regular rate and normal rhythm; Absent JVD Abdominal Exam Abdominal exam: Present soft and normal bowel sounds; Absent distention, tenderness or guarding Extremities Exam Extremities exam: Present normal capillary refill; Absent calf tenderness Expanded Lower Extremity Exam Right: Knee exam: Present normal inspection, full ROM and knee extension intact; Absent tenderness Lower leg exam: Present normal inspection, full ROM and Achilles tendon intact; Absent tenderness or Homans' sign Ankle exam: Present tenderness and swelling; Absent full ROM, abrasion, laceration, ecchymosis, deformity, crepitus, dislocation, erythema, tenderness over talofibular lig or anterior draw sign Foot/toe exam: Present full ROM, tenderness and swelling; Absent abrasion, laceration, ecchymosis, deformity, crepitus, dislocation, erythema, amputation, puncture wound, foreign body, calcaneal tenderness, tenderness at base of 5th metatarsal, nail avulsion or subungual hematoma Neurovascular/Tendon exam: Present normal capillary refill; Absent pulse deficit, motor deficit, sensory deficit, tendon deficit or extremity cold to touch Gait: observed and limited by pain Back Exam Back exam: Present normal inspection; Absent tenderness Neurological Exam Neurological exam: Present alert and oriented X3 Psychiatric Psychiatric exam: Present normal affect and normal mood Skin Skin exam: Present warm, dry, intact and normal color Lymphatic Lymphatic Findings: no adenopathy Medical Decision Making Eddie Inquiry Pt receiving controlled substance: No Vital Signs: 09/15/23 08:30 Temperature 97.7 F Temperature Source Oral Pulse Rate [Right Radial] 84 Respiratory Rate 18 Blood Pressure [Right Arm] 140/90 Blood Pressure Mean [Right Arm] 106 Blood Pressure Source [Right Arm] Automatic Cuff Blood Pressure Position [Right Arm] Sitting 02 Sat by Pulse Oximetry 98 Oxygen Delivery Method Room Air Orders (Tests/Meds): ORDERS Category Date Time Status Foot XR right minimum 3 views [XR foot RT min 3V] Stat Exams 09/15/23 08:27 Taken XR ankle RT min 3V Stat Exams 09/15/23 08:27 Taken Procedures Risk/Benefits of Procedure(s) Were Explained: Yes Orthopedic Splinting/Casting Injury #1: Side: right Lower Extremity Injury Location: ankle and foot Lower Extremity Immobilizer: Sal wrap Other Orthopedic Equipment: crutches Post Cast/Splinting Neuro Status: intact and no change Post Cast/Splinting Vasc Status: intact and no change
[2023-09-15 10:25] VITALS: BP 133/83; PULSE 106; RESP 18; TEMP 36.8; O2SAT 97
== END 2023-09-15 10:25 | disposition home or self-care (01) ==
PROVIDERS: Emergency Provider Nurse Practitioner Family; PCP Internal Medicine
DX: S93.401A Sprain of unspecified ligament of right ankle, initial encounter (principal); S93.601A Unspecified sprain of right foot, initial encounter; X50.0XXA Overexertion from strenuous movement or load, initial encounter; M25.571 Pain in right ankle and joints of right foot
CPT/HCPCS: 73610; 73630; 99204; 99212; G0463

== ENCOUNTER 2023-12-11 09:08 | Emergency (ER) | payer SELFPAY ==
[2023-12-11 09:09] VITALS: BP 105/70; PULSE 91; RESP 18; TEMP 36.7; O2SAT 96; BMI 44.3
[2023-12-11 09:30] VITALS: BP 105/70; PULSE 90; O2SAT 97
[2023-12-11 09:33] LABS: Basophils % 0.2 % (0.1-2.0); Eosinophils # 0.1 K/mm3 (0.0-0.4); Eosinophils % 0.6 % (0.1-12.0); Hemoglobin 15.8 g/dL (12.2-16.2); Lymphocytes # 0.5 K/mm3 (0.7-4.5); Lymphocytes % 6.3 % (10-50); Mean Corpuscular HGB Conc 32.8 g/dL (31.8-35.4); Mean Corpuscular Hemoglobin 29.3 pg (27.0-31.2); Mean Corpuscular Volume 89.2 fl (81-99); Mean Platelet Volume 8.1 fl (7.4-10.4); Monocytes # 0.2 K/mm3 (0.1-1.0); Monocytes % 2.7 % (1.7-9.3); Neutrophils # 7.4 K/mm3 (1.8-7.8); Neutrophils % 90.2 % (37.0-80.0); Platelet Count 269 K/mm3 (142-424); Red Blood Count 5.39 M/mm3 (4.20-5.40); Red Cell Distribution Width 13.9 % (11.5-17.5); White Blood Count 8.2 K/mm3 (4.8-10.8)
[2023-12-11 09:36] LABS: MANUAL DIFFERENTIAL MANUAL DIFFERENTIAL (MANUAL DIFF)
[2023-12-11 09:38] LABS: Chloride 105 mmol/L (98-107); Potassium 4.1 mmoL/L (3.5-5.1); Sodium 137 mmol/L (136-145)
[2023-12-11 09:40] LABS: Alanine Aminotransferase 32 U/L (12-78); Aspartate Amino Transferase 31 U/L (14-36); Blood Urea Nitrogen 16 mg/dl (7-17); Creatinine Clearance Estimated 142 mL/min (50-200); Estimated Glomerular Filt Rate 117 ml/min (>60); GFR (African American) 141 ML/MIN (>60)
[2023-12-11 09:41] LABS: Albumin Level 4.1 g/dl (3.5-5.0); Albumin/Globulin Ratio 1.5 (1.1-1.8); Alkaline Phosphatase 89 U/L (38-126); Anion Gap 11.1 mEq/L (5-15); Bilirubin,Total 0.8 mg/dl (0.2-1.3); Calcium 8.8 mg/dl (8.4-10.2); Carbon Dioxide 25 mmol/L (22.0-30.0); Globulin 2.7 g/dL (1.3-3.2); Glucose 116 mg/dl (74-100); Total Protein,Serum 6.8 g/dl (6.3-8.2)
[2023-12-11] MEDS: ONDANSETRON 4MG/2ML VIAL 4 MG IV (09:43)
[2023-12-11] MEDS: LACTATED RINGERS 1000ML 1,000 ML 999 ML IV (09:43)
[2023-12-11 09:45] LABS: HCG Qualitative, Serum Negative (Negative)
--- NOTE | 2023-12-11 09:58 | ED_ITS ---
Discharge Plan Disposition Patient Disposition: Home, Self-Care Condition: Good Prescriptions Prescriptions: New ondansetron 4 mg tablet,disintegrating 4 mg PO Q8HP PRN (Reason: nausea and vomiting) Qty: 30 0RF No Action albuterol sulfate 90 mcg/actuation HFA aerosol inhaler 1 inh inhalation QID Qty: 6.7 2RF ibuprofen [IBU] 800 mg tablet 800 mg PO Q8HP PRN (Reason: Moderate Pain) Qty: 30 0RF Referrals Follow up/Referrals: Francisco Layton DO [Primary Care Provider] - See instructions Activity Restrictions/Add. Instructions Additional Instructions/Restrictions: You were seen in the ED today due to nausea, vomiting and diarrhea. Labs and urine were reassuring. You most likely have a viral gastrointestinal illness. Please stay hydrated at home. Prescription for Zofran for nausea has been provided. Return to the ED if symptoms worsen or if new concerning symptoms arise. Thank you. Clinical Impressions Clinical Impression: Nausea vomiting and diarrhea Stand Alone Forms Stand Alone Forms: Work/School Release Instructions Patient Instructions: DI for Viral Gastroenteritis -- Adult Discharge ED Provider: Tio Morgan General Adult HPI General Chief complaint: Nausea/Vomiting/Diarrhea Stated complaint: v/d fever 100.7 Time Seen by Provider: 12/11/23 09:58 Mode of Arrival: Ambulatory Source of Information: Patient Limitations: No Limitations Description of Symptoms (Recalled from ER Triage Doc. by RN): Patient reports n/v/d since last night. Also states that she had a fever last night as well. History of Present Illness HPI narrative: Patient is a 33-year-old female with history of polycystic ovarian system who presents due to nausea, vomiting and diarrhea. Patient states symptoms began last night when she was leaving work. States she has had continuous vomiting and diarrhea. Patient states she was also febrile last night with temperature 100.7. States she has had generalized abdominal cramping but no discrete pain. States she works in a [employer] and there has been a viral gastrointestinal illness going around. Patient denies any difficulty urinating. States her last menstrual cycle was approximately 3 months ago however it is normal for her to have irregular periods. Related Data Previous Rx's Medication Instructions Recorded albuterol sulfate 90 mcg/actuation 1 inh inhalation QID #6.7 grams 04/27/23 aerosol inhaler ibuprofen 800 mg tablet (IBU) 800 mg PO Q8HP PRN Moderate Pain 09/15/23 #30 tabs ondansetron 4 mg disintegrating 4 mg PO Q8HP PRN nausea and 12/11/23 tablet vomiting #30 tabs Allergies Allergy/AdvReac Type Severity Reaction Status Date / Time mushroom Allergy Intermediate Hives Verified 09/15/23 09:00 Penicillins [PENICILLINS] Allergy Intermediate I-HIVES Verified 09/15/23 09:00 raspberry Allergy Intermediate Hives Verified 09/15/23 09:00 [facility] Disclaimer: The information contained in this section may have been updated after the patient was seen, as this information can be updated by other users. Medical History (Updated 12/11/23 @ 11:16 by Tio Morgan MD) Depression History of PCOS Asthma Surgical History No significant past surgical history Family History Family/Other No significant family history Social History Smoking Status: Current every day smoker tobacco type: cigarettes packs per day: 1 alcohol intake: never substance use type: marijuana current occupational status: employed Travel in the last 8 weeks: None household members: other housing: house ROS Obtained: Yes All systems reviewed & no additional complaints except as documented Physical Exam General General appearance: alert and in no apparent distress Head Head exam: atraumatic, normocephalic and normal inspection Eye Eye exam: Present normal appearance, PERRL and EOMI ENT ENT exam: Present normal exam, normal oropharynx, mucous membranes moist, TM's normal bilaterally and normal external ear exam Neck Neck exam: Present normal inspection, full ROM and trachea midline; Absent meningismus or lymphadenopathy Chest Chest inspection: Present normal inspection and symmetric chest wall rise; Absent tenderness Respiratory Respiratory exam: Present normal lung sounds bilaterally; Absent respiratory distress Cardiovascular Cardiovascular exam: Present regular rate and normal rhythm; Absent JVD Abdominal Exam Abdominal exam: Present soft and normal bowel sounds; Absent distention, tenderness or guarding Extremities Exam Extremities exam: Present normal inspection, full ROM and normal capillary refill; Absent calf tenderness Back Exam Back exam: Present normal inspection; Absent tenderness Neurological Exam Neurological exam: Present alert and oriented X3 Psychiatric Psychiatric exam: Present normal affect and normal mood Skin Skin exam: Present warm, dry, intact and normal color Lymphatic Lymphatic Findings: no adenopathy Medical Decision Making Eddie Inquiry Pt receiving controlled substance: No Vital Signs: 12/11/23 09:09 12/11/23 09:30 12/11/23 10:00 Temperature 98.0 F Temperature Source Oral Pulse Rate 90 75 Pulse Rate [Radial] 91 H Respiratory Rate 18 Blood Pressure 105/70 L 109/56 L Blood Pressure [Right Arm] 105/70 L Blood Pressure Mean 81 Blood Pressure Mean [Right Arm] 81 Blood Pressure Source [Right Arm] Automatic Cuff Blood Pressure Position [Right Arm] Sitting 02 Sat by Pulse Oximetry 96 97 95 Oxygen Delivery Method Room Air Room Air 12/11/23 10:30 12/11/23 11:00 Temperature Temperature Source Pulse Rate 71 71 Pulse Rate [Radial] Respiratory Rate Blood Pressure 111/60 115/67 Blood Pressure [Right Arm] Blood Pressure Mean Blood Pressure Mean [Right Arm] Blood Pressure Source [Right Arm] Blood Pressure Position [Right Arm] 02 Sat by Pulse Oximetry 95 96 Oxygen Delivery Method Room Air Room Air Lab Data Lab Results 12/11/23 09:22: WBC 8.2, RBC 5.39, Hgb 15.8, Hct 48.0 H, MCV 89.2, MCH 29.3, MCHC 32.8, RDW 13.9, Plt Count 269, MPV 8.1, Neut % (Auto) 90.2 H, Lymph % (Auto) 6.3 L, [place] % (Auto) 2.7, Eos % (Auto) 0.6, Baso % (Auto) 0.2, Neut # (Auto) 7.4, Lymph # (Auto) 0.5 L, [place] # (Auto) 0.2, Eos # (Auto) 0.1, Baso # (Auto) 0.0, Total Counted 100, Neutrophils % (Manual) 85 H, Band Neutrophils % 5.0, Lymphocytes % (Manual) 7 L, Monocytes % (Manual) 3, Platelet Estimate Normal, RBC Morphology Normal, Sodium 137, Potassium 4.1, Chloride 105, Carbon Dioxide 25, Anion Gap 11.1, BUN 16, Creatinine 0.60, Estimated Creat Clear 142, Estimated GFR 117, Est GFR ( Amer) 141, Glucose 116 H, Calcium 8.8, Total Bilirubin 0.8, AST 31, ALT 32, Alkaline Phosphatase 89, Total Protein 6.8, Albumin 4.1, Globulin 2.7, Albumin/Globulin Ratio 1.5, Serum HCG, Qual Negative 12/11/23 10:09: Urine Color Dark yellow, Urine Appearance Clear, Urine pH 6.0, Ur Specific [place] >= 1.030, Urine Protein Negative, Urine Glucose (UA) Negative, Urine Ketones 1+, Urine Blood Trace-i, Urine Nitrate Negative, Urine Bilirubin 1+ A, Urine Urobilinogen 1.0, Ur Leukocyte Esterase Negative, Urine RBC Occasional, Urine WBC None, Ur Squamous Epith Cells Occasional, Urine Bacteria Trace 12/11/23 09:22 12/11/23 09:22 Orders (Tests/Meds): ED MEDICATIONS Discontinued Medications Generic Name Dose Route Start Last Admin Trade Name Freq PRN Reason Stop Dose Admin Lactated Ringer's 1,000 mls @ 999 mls/hr 12/11/23 09:26 12/11/23 09:43 Lactated Ringer's 1000 Ml Bag IV 12/11/23 10:26 999 mls/hr .Q1H1M ONE Administration Ondansetron HCl 4 mg 12/11/23 09:26 12/11/23 09:43 Ondansetron 4mg/2ml Vial IV 12/11/23 09:27 4 mg ONCE ONE Administration ORDERS Category Date Time Status Complete Blood Count Auto Diff Stat Lab 12/11/23 09:22 Completed Comprehensive Metabolic Panel Stat Lab 12/11/23 09:22 Completed Serum [HCG Qualitative, Serum] Stat Lab 12/11/23 09:22 Completed Urinalysis and Microscopic Stat Lab 12/11/23 10:09 Completed Medical Decision Narrative: In summary, patient is a 33-year-old female with history of PCOS, evaluated in the emergency department today due to 1 day of nausea/vomiting/diarrhea. On arrival, patient is hemodynamically stable. On examination, patient has reassuring abdominal exam. Differential diagnosis includes but is not limited to viral gastroenteritis, food poisoning, intra-abdominal infection, gallbladder disease. Patient given 1 L LR, IV Zofran. Workup initiated including CBC, CMP, qualitative hCG, urinalysis. Labs independently interpreted by me and significant for no significant findings. On reevaluation, patient reports significant improvement in symptoms and is tolerating oral intake without difficulty. She is appropriate for discharge at this time. She most likely has a viral gastroenteritis. Patient counseled on home care, given strict return precautions and agreeable to plan. I considered the utility of obtaining abdominal imaging, but decided against this because examination is reassuring and this would not casino change attendant. I considered admitting the patient to the hospital for observation, and in shared decision-making with patient, decided on outpatient management. Critical Care Critical Care Time Critical Care Time: No
[2023-12-11 10:00] VITALS: BP 109/56; PULSE 75; O2SAT 95
--- NOTE | 2023-12-11 10:04 | PC.NURSE ---
PT ASSISTED TO BR
[2023-12-11 10:12] LABS: Microscopic, Urine URINE MICROSCOPIC (MICROSCOPIC)
[2023-12-11 10:17] LABS: Lymphocytes % 7 % (10-50); Monocytes % 3 % (2-9); Neutrophils % 85 % (42-76); Total Cells Counted 100
[2023-12-11 10:18] LABS: Platelet Estimate Normal; RBC Morphology Normal
[2023-12-11 10:24] LABS: Appearance,Urine CLEAR (Clear); Blood, Urine TRACE-I (Negative); Color,Urine DARK YELLOW (Yellow); Glucose,Urine (UA) Negative (Negative); Ketones,Urine 1+ (Negative); Leukocyte Esterase,Urine Negative (Negative); Nitrate,Urine Negative (Negative); Protein,Urine Negative (Negative); Specific Gravity, Urine >= 1.030 (1.005-1.030)
[2023-12-11 10:30] VITALS: BP 111/60; PULSE 71; O2SAT 95
--- NOTE | 2023-12-11 10:36 | PC.NURSE ---
rounded on pt no needs at this time,call light in reach
[2023-12-11 10:38] LABS: Bilirubin,Urine 1+ (Negative)
[2023-12-11 10:40] LABS: Bacteria,Urine Trace /lpf; RBC,Urine Occasional #/hpf (0-3); Squamous Epithelial Cell,Urine Occasional #/hpf (0-5)
[2023-12-11 11:00] VITALS: BP 115/67; PULSE 71; O2SAT 96
[2023-12-11 11:23] VITALS: BP 115/67; PULSE 71; RESP 16; TEMP 36.7; O2SAT 96
== END 2023-12-11 11:25 | disposition home or self-care (01) ==
PROVIDERS: Emergency Provider Student in an Organized Health Care Education/Training Program; PCP Internal Medicine
DX: R10.819 Abdominal tenderness, unspecified site (principal); R11.2 Nausea with vomiting, unspecified; R19.7 Diarrhea, unspecified; F17.210 Nicotine dependence, cigarettes, uncomplicated
CPT/HCPCS: 80053; 81001; 84703; 85007; 85025; 96361; 96374; 99284; J2405

== ENCOUNTER 2023-12-28 15:48 | Emergency (ER) | payer SELFPAY ==
[2023-12-28 16:35] VITALS: BP 144/76; PULSE 69; RESP 20; TEMP 36.7; O2SAT 96; BMI 46.7
--- NOTE | 2023-12-28 16:59 | EXP.UTC ---
Discharge Plan Disposition Patient Disposition: Home, Self-Care Condition: Good Prescriptions Prescriptions: New miconazole nitrate 2 % cream 1 applic topical BID Qty: 28 0RF Rx Instructions: apply to area on ankle and calf as directed Referrals Follow up/Referrals: Francisco Layton DO [Primary Care Provider] - See instructions Activity Restrictions/Add. Instructions Additional Instructions/Restrictions: Apply as directed Follow up with your Family Doctor if no improvement Return if needed Clinical Impressions Clinical Impression: Ringworm Instructions Patient Instructions: DI for Tinea Corporis Discharge ED Provider: Brandee Her[place] [facility] [place] General Stated complaint: ? ringworm on both legs Mode of Arrival: Ambulatory Source of Information: Patient Limitations: No Limitations Time Seen by Provider: 12/28/23 16:59 Description of Symptoms (Recalled from Triage Doc. by RN): PATIENT C/O RASH/RINGWORM TO BILATERAL ARMS AND LEGS X 3 DAYS HEENT Symptoms (Recalled from RN notes): No Resp Symptoms (Recalled from RN notes): No Skin Symptoms (Recalled from RN notes): Yes MS Symptoms (Recalled from RN notes): No Functional Status (Recalled from RN notes): WNL History of Present Illness Provider Complaint: Patient states that she has been fighting poison tyler on her arms and legs for several weeks States that she noticed a small area on her right ankle and on her calf that looks like ring worm States that she bought some over the counter topical antifungal and she noticed it was looking like a rash Related Data Previous Rx's Medication Instructions Recorded miconazole nitrate 2 % topical 1 applic topical BID #28 grams 12/28/23 cream Allergies Allergy/AdvReac Type Severity Reaction Status Date / Time mushroom Allergy Intermediate Hives Verified 09/15/23 09:00 Penicillins [PENICILLINS] Allergy Intermediate I-HIVES Verified 09/15/23 09:00 raspberry Allergy Intermediate Hives Verified 09/15/23 09:00 Worker's Comp Is this a Worker's Comp case?: No [facility] Disclaimer: The information contained in this section may have been updated after the patient was seen, as this information can be updated by other users. Medical History (Updated 12/28/23 @ 17:21 by Brandee Herring APRN) Anxiety Depression History of PCOS Asthma Surgical History No significant past surgical history Family History Family/Other No significant family history Social History Smoking Status: Current every day smoker tobacco type: cigarettes packs per day: 1 alcohol intake: never substance use type: marijuana current occupational status: employed Travel in the last 8 weeks: None household members: other housing: house ROS Obtained: Yes All systems reviewed & no additional complaints except as documented and Yes Systems reviewed as appropriate & no additional complaints except as documented Constitutional Constitutional: Reports system reviewed and no additional complaints, except as documented and Reports as per HPI Cardiovascular Cardiovascular: Reports system reviewed and no additional complaints, except as documented and Reports as per HPI Respiratory Respiratory: Reports system reviewed and no additional complaints, except as documented and Reports as per HPI Integumentary/Breasts Skin/Breast: Reports system reviewed and no additional complaints, except as documented, Reports as per HPI and Reports other Comments: ring worm on right ankle and left calf thinks lotrimin made her break out Physical Exam General General appearance: alert and in no apparent distress Respiratory Respiratory exam: Present normal lung sounds bilaterally; Absent respiratory distress or wheezes Cardiovascular Cardiovascular exam: Present regular rate, normal rhythm and normal heart sounds Neurological Exam Neurological exam: Present alert and normal gait Skin Skin exam: Present rash (poison tyler rash on arms and legs patient is currently on Prednisone) Expanded Skin Exam Body image: 1. small round area noted with central clearing and dry circular area noted 2. small circular area noted with central clearing and dry margins Medical Decision Making Eddie Inquiry Pt receiving controlled substance: No Eddie was queried for this patient: No Vital Signs: 12/28/23 16:35 Temperature 98.1 F Temperature Source Oral Pulse Rate [Left Brachial] 69 Respiratory Rate 20 Blood Pressure [Left Arm] 144/76 H Blood Pressure Mean [Left Arm] 98 Blood Pressure Source [Left Arm] Automatic Cuff Blood Pressure Position [Left Arm] Sitting 02 Sat by Pulse Oximetry 96 Oxygen Delivery Method Room Air Medical Decision Narrative: Medication discussed with pharmacy
[2023-12-28 17:25] VITALS: BP 144/76; PULSE 69; RESP 20; TEMP 36.7; O2SAT 96
== END 2023-12-28 17:28 | disposition home or self-care (01) ==
PROVIDERS: Emergency Provider Nurse Practitioner; PCP Internal Medicine
DX: B35.9 Dermatophytosis, unspecified (principal)
CPT/HCPCS: 99212; 99214; G0463

== ENCOUNTER 2023-12-30 08:48 | Emergency (ER) | payer SELFPAY ==
[2023-12-30 08:50] VITALS: BP 132/81; PULSE 74; RESP 18; TEMP 36.7; O2SAT 98; BMI 44.3
--- NOTE | 2023-12-30 09:10 | EXP.UTC ---
Discharge Plan Disposition Patient Disposition: Home, Self-Care Condition: Good Prescriptions Prescriptions: New triamcinolone acetonide 0.1 % cream 1 applic topical BID PRN (Reason: itching) Qty: 30 0RF methylprednisolone 4 mg Tablets,Dose Pack 4 mg PO DIRECTED 6 Days Qty: 21 0RF Rx Instructions: Take 1 pack as directed for 6 days No Action miconazole nitrate 2 % cream 1 applic topical BID Qty: 28 0RF Rx Instructions: apply to area on ankle and calf as directed Referrals Follow up/Referrals: Francisco Layton DO [Primary Care Provider] - See instructions Activity Restrictions/Add. Instructions Additional Instructions/Restrictions: Try to avoid contact poison tyler. Don't start the oral steroids (medrol dose pack) until tomorrow. Take over the counter diphenhydramine (benedryl) regularly for the next few days. It will make you drowsy, so don't drive or operate heavy machinery after taking it. Don't put the topical steroids (triamcinolone) on your face or your groin. Follow up with your regular doctor. GO TO THE ER FOR ANY WORSENING SYMPTOMS OR CONCERNS Clinical Impressions Clinical Impression: Contact dermatitis Instructions Patient Instructions: Contact Dermatitis, DI for Contact Dermatitis, Triamcinolone Topical, Methylprednisolone, Dexamethasone Injection Discharge ED Provider: Efren Sands [facility] General Stated complaint: rash on right leg Time Seen by Provider: 12/30/23 09:10 History of Present Illness Provider Complaint: She states that she has had an itchy rash on her right leg and bilateral arms for the past 1 week. Related Data Previous Rx's Medication Instructions Recorded miconazole nitrate 2 % topical 1 applic topical BID #28 grams 12/28/23 cream methylprednisolone 4 mg tablets in 4 mg PO DIRECTED 6 days #21 tabs 12/30/23 a dose pack triamcinolone acetonide 0.1 % 1 applic topical BID PRN itching 12/30/23 topical cream #30 grams Allergies Allergy/AdvReac Type Severity Reaction Status Date / Time mushroom Allergy Intermediate Hives Verified 12/30/23 09:12 Penicillins [PENICILLINS] Allergy Intermediate I-HIVES Verified 12/30/23 09:12 raspberry Allergy Intermediate Hives Verified 12/30/23 09:12 [facility] Disclaimer: The information contained in this section may have been updated after the patient was seen, as this information can be updated by other users. Medical History (Updated 12/30/23 @ 09:55 by Efren Sands APRN) Anxiety Depression History of PCOS Asthma Surgical History No significant past surgical history Family History Family/Other No significant family history Social History Smoking Status: Current every day smoker tobacco type: cigarettes packs per day: 1 alcohol intake: never substance use type: marijuana current occupational status: employed Travel in the last 8 weeks: None household members: other housing: house ROS Obtained: Yes All systems reviewed & no additional complaints except as documented Constitutional Constitutional: Denies chills and Denies fever(s) Eyes Eyes: Denies eye discharge ENT Ears, Nose, Mouth, and Throat: Denies dizziness, Denies otalgia and Denies sore throat Cardiovascular Cardiovascular: Denies chest pain Respiratory Respiratory: Denies shortness of breath, Denies chest congestion, Denies cough, Denies stridor and Denies wheezing Gastrointestinal Gastrointestingal: Denies nausea or vomiting Musculoskeletal Musculoskeletal: Reports system reviewed and no additional complaints, except as documented and Denies arthralgias Integumentary/Breasts Skin/Breast: Reports rash Neurologic Neurologic: Denies dizziness and Denies paresthesias Allergic/Immunologic Allergic/Immunologic: Denies wheezing Physical Exam General General appearance: alert and in no apparent distress Head Head exam: atraumatic, normocephalic and normal inspection Eye Eye exam: Present normal appearance, PERRL and EOMI ENT ENT exam: Present normal exam, normal oropharynx, mucous membranes moist, TM's normal bilaterally and normal external ear exam Neck Neck exam: Present normal inspection, full ROM and trachea midline; Absent meningismus or lymphadenopathy Chest Chest inspection: Present normal inspection and symmetric chest wall rise; Absent tenderness Respiratory Respiratory exam: Present normal lung sounds bilaterally; Absent respiratory distress Cardiovascular Cardiovascular exam: Present regular rate and normal rhythm; Absent JVD Abdominal Exam Abdominal exam: Present soft and normal bowel sounds; Absent distention, tenderness or guarding Extremities Exam Extremities exam: Present normal inspection, full ROM and normal capillary refill; Absent calf tenderness Back Exam Back exam: Present normal inspection; Absent tenderness Neurological Exam Neurological exam: Present alert and oriented X3 Psychiatric Psychiatric exam: Present normal affect and normal mood Skin Skin exam: Present rash Lymphatic Lymphatic Findings: no adenopathy Medical Decision Making Medical Records Medical records reviewed: No I reviewed the patient's medical records. Eddie Inquiry Pt receiving controlled substance: No
[2023-12-30] MEDS: DEXAMETHASONE 4MG/ML 1ML VIAL 10 MG IM (09:42)
[2023-12-30 10:14] VITALS: BP 132/81; PULSE 74; RESP 18; TEMP 36.7; O2SAT 98
== END 2023-12-30 10:14 | disposition home or self-care (01) ==
PROVIDERS: Emergency Provider Nurse Practitioner Family; PCP Internal Medicine
DX: L25.9 Unspecified contact dermatitis, unspecified cause (principal); L29.9 Pruritus, unspecified; R21 Rash and other nonspecific skin eruption; F41.9 Anxiety disorder, unspecified; F32.A Depression, unspecified; E28.2 Polycystic ovarian syndrome; J45.909 Unspecified asthma, uncomplicated; F17.210 Nicotine dependence, cigarettes, uncomplicated
CPT/HCPCS: 96372; 99212; 99214; G0463

== ENCOUNTER 2024-01-11 08:01 | Emergency (ER) | payer SELFPAY ==
[2024-01-11 08:15] VITALS: BP 133/91; PULSE 85; RESP 21; TEMP 36.5; O2SAT 98; BMI 49.6
--- NOTE | 2024-01-11 08:21 | EXP.UTC ---
Discharge Plan Disposition Patient Disposition: Home, Self-Care Condition: Good Prescriptions Prescriptions: New ibuprofen 800 mg tablet 800 mg PO Q8H PRN (Reason: pain) Qty: 30 0RF Rx Instructions: Do not take any on 01/11/24. cyclobenzaprine 7.5 mg tablet 7.5 mg PO TID PRN (Reason: muscle spasm) Qty: 30 0RF Referrals Follow up/Referrals: Francisco Layton DO [Primary Care Provider] - See instructions Activity Restrictions/Add. Instructions Additional Instructions/Restrictions: Follow up with PCP if symptoms persist or worsen. Clinical Impressions Clinical Impression: Muscle spasm Instructions Patient Instructions: DI for Muscle Spasm Discharge ED Provider: Faiza Saez [facility] General Stated complaint: painful cough soa Time Seen by Provider: 01/11/24 08:17 History of Present Illness Provider Complaint: Pt reports that for the last couple of days anytime she coughs or sneezes she has pain under her left breast. She states that she is only coughing with smoking. She has taken Tylenol for her symptoms with limited relief. Related Data Previous Rx's Medication Instructions Recorded cyclobenzaprine 7.5 mg tablet 7.5 mg PO TID PRN muscle spasm #30 01/11/24 tabs ibuprofen 800 mg tablet 800 mg PO Q8H PRN pain #30 tabs 01/11/24 Allergies Allergy/AdvReac Type Severity Reaction Status Date / Time mushroom Allergy Intermediate Hives Verified 12/30/23 09:12 Penicillins [PENICILLINS] Allergy Intermediate I-HIVES Verified 12/30/23 09:12 raspberry Allergy Intermediate Hives Verified 12/30/23 09:12 [facility] Disclaimer: The information contained in this section may have been updated after the patient was seen, as this information can be updated by other users. Medical History (Updated 01/11/24 @ 08:42 by Faiza Saez APRN) Anxiety Depression History of PCOS Asthma Surgical History No significant past surgical history Family History Family/Other No significant family history Social History Smoking Status: Current every day smoker tobacco type: cigarettes packs per day: 1 alcohol intake: never substance use type: marijuana current occupational status: employed Travel in the last 8 weeks: None household members: other housing: house ROS Obtained: Yes All systems reviewed & no additional complaints except as documented Constitutional Constitutional: Reports system reviewed and no additional complaints, except as documented Eyes Eyes: Reports system reviewed and no additional complaints, except as documented ENT Ears, Nose, Mouth, and Throat: Reports system reviewed and no additional complaints, except as documented Cardiovascular Cardiovascular: Reports system reviewed and no additional complaints, except as documented Respiratory Respiratory: Reports system reviewed and no additional complaints, except as documented, Reports cough and Reports non-productive cough Comments: with smoking Gastrointestinal Gastrointestingal: Reports system reviewed and no additional complaints, except as documented Genitourinary Female Genitourinary: Reports system reviewed and no additional complaints, except as documented Musculoskeletal Musculoskeletal: Reports system reviewed and no additional complaints, except as documented, Reports muscle cramps and Reports myalgias Integumentary/Breasts Skin/Breast: Reports system reviewed and no additional complaints, except as documented Neurologic Neurologic: Reports system reviewed and no additional complaints, except as documented Endocrine Endocrine: Reports system reviewed and no additional complaints, except as documented Hematologic/Lymphatic Henatologic/Lymphatic: Reports system reviewed and no additional complaints, except as documented Allergic/Immunologic Allergic/Immunologic: Reports system reviewed and no additional complaints, except as documented Physical Exam General General appearance: alert and in no apparent distress Head Head exam: atraumatic and normocephalic Eye Eye exam: Present normal appearance ENT ENT exam: Present normal exam Neck Neck exam: Present normal inspection Chest Chest inspection: Present normal inspection, symmetric chest wall rise and tenderness Expanded Chest Exam Breast: right: tenderness (under breast) Respiratory Respiratory exam: Present normal lung sounds bilaterally Cardiovascular Cardiovascular exam: Present regular rate and normal rhythm Abdominal Exam Abdominal exam: Present soft Extremities Exam Extremities exam: Present normal inspection Back Exam Back exam: Present normal inspection Neurological Exam Neurological exam: Present alert and oriented X3 Psychiatric Psychiatric exam: Present normal affect and normal mood Skin Skin exam: Present warm, dry and intact Lymphatic Lymphatic Findings: no adenopathy Medical Decision Making Eddie Inquiry Pt receiving controlled substance: No Eddie was queried for this patient: No
[2024-01-11] MEDS: KETOROLAC 30MG/ML VIAL 30 MG IM (08:42)
[2024-01-11 08:52] VITALS: BP 133/91; PULSE 85; RESP 21; TEMP 36.5; O2SAT 98
== END 2024-01-11 08:57 | disposition home or self-care (01) ==
PROVIDERS: Emergency Provider Nurse Practitioner Family; PCP Internal Medicine
DX: R07.1 Chest pain on breathing (principal); M62.838 Other muscle spasm; R05.9 Cough, unspecified; F17.210 Nicotine dependence, cigarettes, uncomplicated
CPT/HCPCS: 96372; 99212; 99214; G0463

== ENCOUNTER 2024-03-20 15:44 | Emergency (ER) | payer SELFPAY ==
[2024-03-20 15:50] VITALS: BP 119/82; PULSE 70; RESP 20; TEMP 36.6; O2SAT 97; BMI 44.3
--- NOTE | 2024-03-20 15:55 | ED_ITS ---
Discharge Plan Disposition Patient Disposition: Home, Self-Care Condition: Good Prescriptions Prescriptions: New clindamycin HCl 300 mg capsule 300 mg PO Q8H Qty: 30 0RF ibuprofen [IBU] 800 mg tablet 800 mg PO Q8HP PRN (Reason: Moderate Pain) Qty: 30 0RF Referrals Follow up/Referrals: Francisco Layton DO [Primary Care Provider] - See instructions Activity Restrictions/Add. Instructions Additional Instructions/Restrictions: Take tylenol or ibuprofen for pain or fever. Take the medications as directed. Follow up with your regular doctor. GO TO THE ER FOR ANY WORSENING SYMPTOMS Clinical Impressions Clinical Impression: Dental abscess Instructions Patient Instructions: DI for Tooth Abscess, Ibuprofen, Clindamycin Print Language Print Language: Guyanese Discharge ED Provider: Efren Sands [facility] General Stated complaint: dental pain Time Seen by Provider: 03/20/24 15:55 Related Data Previous Rx's ?Medication ?Instructions ?Recorded clindamycin HCl 300 mg capsule 300 mg PO Q8H #30 caps 03/20/24 ibuprofen 800 mg tablet (IBU) 800 mg PO Q8HP PRN Moderate Pain 03/20/24 #30 tabs Allergies Allergy/AdvReac Type Severity Reaction Status Date / Time mushroom Allergy Intermediate Hives Verified 12/30/23 09:12 Penicillins [PENICILLINS] Allergy Intermediate I-HIVES Verified 12/30/23 09:12 raspberry Allergy Intermediate Hives Verified 12/30/23 09:12 [facility] Disclaimer: The information contained in this section may have been updated after the patient was seen, as this information can be updated by other users. Medical History (Updated 03/20/24 @ 16:36 by Efren Sands APRN) Anxiety Depression History of PCOS Asthma Surgical History No significant past surgical history Family History Family/Other No significant family history Social History Smoking Status: Current every day smoker tobacco type: cigarettes packs per day: 1 alcohol intake: never substance use type: marijuana current occupational status: employed Travel in the last 8 weeks: None household members: other housing: house ROS Obtained: Yes All systems reviewed & no additional complaints except as documented Constitutional Constitutional: Denies chills and Denies fever(s) Eyes Eyes: Denies eye discharge ENT Ears, Nose, Mouth, and Throat: Reports as per HPI, Denies dizziness, Denies otalgia and Denies sore throat Cardiovascular Cardiovascular: Denies chest pain Respiratory Respiratory: Denies shortness of breath, Denies chest congestion, Denies cough, Denies stridor and Denies wheezing Gastrointestinal Gastrointestingal: Denies nausea or vomiting Musculoskeletal Musculoskeletal: Reports system reviewed and no additional complaints, except as documented and Denies arthralgias Integumentary/Breasts Skin/Breast: Denies rash Neurologic Neurologic: Denies dizziness and Denies paresthesias Allergic/Immunologic Allergic/Immunologic: Denies wheezing Physical Exam General General appearance: alert and in no apparent distress Head Head exam: atraumatic, normocephalic and normal inspection Eye Eye exam: Present normal appearance, PERRL and EOMI ENT ENT exam: Present mucous membranes moist, TM's normal bilaterally and normal external ear exam Expanded ENT Exam Nose exam: Absent sinus tenderness Nasal speculum exam: Bilateral: normal Mouth exam: Present normal external inspection; Absent drooling Teeth exam: Present dental caries, fractured tooth #, dental tenderness # and gingival swelling Throat exam: Present normal inspection Neck Neck exam: Present normal inspection, full ROM and trachea midline; Absent meningismus or lymphadenopathy Chest Chest inspection: Present normal inspection and symmetric chest wall rise; Absent tenderness Respiratory Respiratory exam: Present normal lung sounds bilaterally; Absent respiratory distress Cardiovascular Cardiovascular exam: Present regular rate and normal rhythm; Absent JVD Abdominal Exam Abdominal exam: Present soft and normal bowel sounds; Absent distention, tenderness or guarding Extremities Exam Extremities exam: Present normal inspection, full ROM and normal capillary refill; Absent calf tenderness Back Exam Back exam: Present normal inspection; Absent tenderness Neurological Exam Neurological exam: Present alert and oriented X3 Psychiatric Psychiatric exam: Present normal affect and normal mood Skin Skin exam: Present warm, dry, intact and normal color Lymphatic Lymphatic Findings: no adenopathy Medical Decision Making Medical Records Medical records reviewed: No I reviewed the patient's medical records. Eddie Inquiry Pt receiving controlled substance: No
[2024-03-20] MEDS: LIDOCAINE 2% VISCOUS SOL 15ML UDC 15 ML PO (16:18)
[2024-03-20] MEDS: TETRACAINE/BENZOCAINE/BUTAMBEN 56 GM SPRAY TP (16:18)
[2024-03-20 16:36] VITALS: BP 119/82; PULSE 70; RESP 20; TEMP 36.6; O2SAT 97
[2024-03-20] MEDS: CLINDAMYCIN 150MG CAPSULE 300 MG PO (16:38)
== END 2024-03-20 16:41 | disposition home or self-care (01) ==
PROVIDERS: Emergency Provider Nurse Practitioner Family; PCP Internal Medicine
DX: K04.7 Periapical abscess without sinus (principal)
CPT/HCPCS: 99212; 99214; G0463

== ENCOUNTER 2024-06-26 11:28 | Emergency (ER) | payer SELFPAY ==
--- NOTE | 2024-06-26 11:46 | ED_ITS ---
Discharge Plan Disposition Patient Disposition: Home, Self-Care Condition: Good Prescriptions Prescriptions: New phenazopyridine [Pyridium] 200 mg tablet 200 mg PO Q8H 2 Days Qty: 6 0RF nitrofurantoin monohyd/m-cryst [Macrobid] 100 mg Capsule 100 mg PO BID Qty: 10 0RF Rx Instructions: must administer with a meal/food No Action prednisone 10 mg tablet 10 mg PO BID 3 Days Qty: 6 0RF [id number] [Bromfed DM] 2-30-10 mg/5 mL Syrup 5 ml PO Q6H PRN (Reason: Cough) Qty: 240 0RF Referrals Follow up/Referrals: Francisco Layton DO [Primary Care Provider] - See instructions Activity Restrictions/Add. Instructions Additional Instructions/Restrictions: Drink plenty of fluids. Take tylenol or ibuprofen for pain or fever. Take the medications as directed. Follow up with your regular doctor. GO TO THE ER FOR ANY WORSENING SYMPTOMS The pyridium will make your urine turn orange, this is an expected side effect. It will stain your clothes if it comes into contact with them. We will culture the urine. That will tell what bacteria is causing your infection and which antibiotics will treat it best.This test takes 3 days to complete. Clinical Impressions Clinical Impression: Urinary frequency Instructions Patient Instructions: Urine Culture, DI for Urinary Tract Infection (UTI), Phenazopyridine Print Language Print Language: Thai Discharge ED Provider: Efren Sands [facility] HPI General Stated complaint: Pain and frequent urination, pos test for UTI Time Seen by Provider: 06/26/24 11:46 Related Data Previous Rx's ?Medication ?Instructions ?Recorded nitrofurantoin 100 mg PO BID #10 caps 06/26/24 monohydrate/macrocrystals 100 mg capsule (Macrobid) phenazopyridine 200 mg tablet 200 mg PO Q8H 2 days #6 tabs 06/26/24 (Pyridium) avcurojefrsvdbj-zegqgmokjjygfrh-WH 5 ml PO Q6H PRN Cough #240 mL 06/29/24 2 mg-30 mg-10 mg/5 mL oral syrup (Bromfed DM) prednisone 10 mg tablet 10 mg PO BID 3 days #6 tabs 06/29/24 Allergies Allergy/AdvReac Type Severity Reaction Status Date / Time mushroom Allergy Intermediate Hives Verified 12/30/23 09:12 Penicillins (PENICILLINS) Allergy Intermediate I-HIVES Verified 12/30/23 09:12 raspberry Allergy Intermediate Hives Verified 12/30/23 09:12 [facility] Disclaimer: The information contained in this section may have been updated after the patient was seen, as this information can be updated by other users. Medical History (Updated 06/29/24 @ 14:03 by Efren Sands APRN) Urinary tract infection Anxiety Depression History of PCOS Asthma Surgical History No significant past surgical history Family History Family/Other No significant family history Social History Smoking Status: Current every day smoker tobacco type: cigarettes packs per day: 1 alcohol intake: never substance use type: marijuana current occupational status: employed household members: other housing: house ROS Obtained: Yes All systems reviewed & no additional complaints except as documented Constitutional Constitutional: Reports system reviewed and no additional complaints, except as documented, Denies chills and Denies fever(s) Eyes Eyes: Denies eye discharge ENT Ears, Nose, Mouth, and Throat: Denies dysphagia, Denies sore throat and Denies throat swelling Cardiovascular Cardiovascular: Denies chest pain and Denies dyspnea Respiratory Respiratory: Denies chest congestion, Denies cough and Denies dyspnea Gastrointestinal Gastrointestingal: Denies abdominal pain, constipation, diarrhea, dysphagia, nausea or vomiting Genitourinary Female Genitourinary: Reports as per HPI, Reports dysuria, Reports urinary frequency, Denies urinary incontinence, Reports urinary hesitancy and Denies urinary urgency Musculoskeletal Musculoskeletal: Denies arthralgias and Reports back pain Integumentary/Breasts Skin/Breast: Denies rash Neurologic Neurologic: Denies paresthesias Allergic/Immunologic Allergic/Immunologic: Denies throat swelling Physical Exam General General appearance: alert and in no apparent distress Head Head exam: atraumatic, normocephalic and normal inspection Eye Eye exam: Present normal appearance, PERRL and EOMI ENT ENT exam: Present normal exam, normal oropharynx, mucous membranes moist, TM's normal bilaterally and normal external ear exam Neck Neck exam: Present normal inspection, full ROM and trachea midline; Absent meningismus or lymphadenopathy Chest Chest inspection: Present normal inspection and symmetric chest wall rise; Absent tenderness Respiratory Respiratory exam: Present normal lung sounds bilaterally; Absent respiratory distress Cardiovascular Cardiovascular exam: Present regular rate and normal rhythm; Absent JVD Abdominal Exam Abdominal exam: Present soft and normal bowel sounds; Absent distention, tenderness or guarding Extremities Exam Extremities exam: Present normal inspection, full ROM and normal capillary refill; Absent calf tenderness Back Exam Back exam: Present normal inspection; Absent tenderness Neurological Exam Neurological exam: Present alert and oriented X3 Psychiatric Psychiatric exam: Present normal affect and normal mood Skin Skin exam: Present warm, dry, intact and normal color Lymphatic Lymphatic Findings: no adenopathy Medical Decision Making Medical Records Medical records reviewed: No I reviewed the patient's medical records. Screening: Per USPSTF and CDC recommendations, given the prevalence of disease in our region, it is our hospital?s policy to screen for HIV and viral Hepatitis for all patients aged 18 and over and those with ongoing risk factors. Eddie Inquiry Pt receiving controlled substance: No
[2024-06-26 11:51] VITALS: BP 134/71; PULSE 85; RESP 18; TEMP 36.5; O2SAT 98; BMI 44.3
[2024-06-26 11:58] LABS: Apearance,Urine Clear (Clear); Color,Urine Yellow (Yellow)
[2024-06-26 11:59] LABS: Bilirubin,Urine Negative (Negative); Blood, Urine Negative (Negative); Glucose,Urine (UA) Negative (Negative); Ketones,Urine Negative (Negative); PH,Urine 6.5 (5.0-8.5); Protein,Urine Negative (Negative); UTC Leukocyte Esterase,Urine Negative (Negative); UTC Nitrate,Urine Negative (Negative); Urobilinogen,Urine 0.2 EU/dl (0.2)
[2024-06-26 12:14] VITALS: BP 134/71; PULSE 85; RESP 18; TEMP 36.5
[2024-06-29 03:37] LABS: Neisseria gonorrhoeae, NAA Negative (Negative)
== END 2024-06-26 12:15 | disposition home or self-care (01) ==
PROVIDERS: Emergency Provider Nurse Practitioner Family; PCP Internal Medicine
DX: N39.0 Urinary tract infection, site not specified (principal)
CPT/HCPCS: 81003; 87086; 87491; 87591; 99213; G0381

== ENCOUNTER 2024-06-29 12:28 | Emergency (ER) | payer SELFPAY ==
[2024-06-29 13:10] VITALS: BP 125/61; PULSE 59; RESP 18; TEMP 36.8; O2SAT 97; BMI 44.3
--- NOTE | 2024-06-29 13:25 | ED_ITS ---
Discharge Plan Disposition Patient Disposition: Home, Self-Care Condition: Good Prescriptions Prescriptions: New prednisone 10 mg tablet 10 mg PO BID 3 Days Qty: 6 0RF [id number] [Bromfed DM] 2-30-10 mg/5 mL Syrup 5 ml PO Q6H PRN (Reason: Cough) Qty: 240 0RF No Action phenazopyridine [Pyridium] 200 mg tablet 200 mg PO Q8H 2 Days Qty: 6 0RF nitrofurantoin monohyd/m-cryst [Macrobid] 100 mg Capsule 100 mg PO BID Qty: 10 0RF Rx Instructions: must administer with a meal/food Referrals Follow up/Referrals: Francisco Layton DO [Primary Care Provider] - See instructions Activity Restrictions/Add. Instructions Additional Instructions/Restrictions: Drink plenty of fluids. Take tylenol or ibuprofen for pain or fever. Take the medications as directed. Follow up with your regular doctor. GO TO THE ER FOR ANY WORSENING SYMPTOMS Clinical Impressions Clinical Impression: Acute viral syndrome Stand Alone Forms Stand Alone Forms: Work/School Release Instructions Patient Instructions: DI for Viral Syndrome Print Language Print Language: Cymraes Discharge ED Provider: Efren Sands [facility] General Stated complaint: sore throat, swollen throat, congestion Mode of Arrival: Ambulatory Source of Information: Patient Limitations: No Limitations Time Seen by Provider: 06/29/24 13:17 Description of Symptoms (Recalled from Triage Doc. by RN): PATIENT C/O SORE THROAT, CONGESTION AND COUGH SINCE YESTERDAY HEENT Symptoms (Recalled from RN notes): Yes Resp Symptoms (Recalled from RN notes): Yes Skin Symptoms (Recalled from RN notes): No MS Symptoms (Recalled from RN notes): No Functional Status (Recalled from RN notes): WNL Related Data Previous Rx's ?Medication ?Instructions ?Recorded nitrofurantoin 100 mg PO BID #10 caps 06/26/24 monohydrate/macrocrystals 100 mg capsule (Macrobid) phenazopyridine 200 mg tablet 200 mg PO Q8H 2 days #6 tabs 06/26/24 (Pyridium) vkcrgtxnpumjbro-kenzshtymgbjxnb-NA 5 ml PO Q6H PRN Cough #240 mL 06/29/24 2 mg-30 mg-10 mg/5 mL oral syrup (Bromfed DM) prednisone 10 mg tablet 10 mg PO BID 3 days #6 tabs 06/29/24 Allergies Allergy/AdvReac Type Severity Reaction Status Date / Time mushroom Allergy Intermediate Hives Verified 12/30/23 09:12 Penicillins (PENICILLINS) Allergy Intermediate I-HIVES Verified 12/30/23 09:12 raspberry Allergy Intermediate Hives Verified 12/30/23 09:12 Worker's Comp Is this a Worker's Comp case?: No [facility] Disclaimer: The information contained in this section may have been updated after the patient was seen, as this information can be updated by other users. Medical History (Updated 06/29/24 @ 14:03 by Efren Sands APRN) Urinary tract infection Anxiety Depression History of PCOS Asthma Surgical History No significant past surgical history Family History Family/Other No significant family history Social History (Updated 06/30/24 @ 15:45 by Efren Sands APRN) Smoking Status: Current every day smoker tobacco type: cigarettes packs per day: 1 alcohol intake: never substance use type: marijuana current occupational status: employed Travel in the last 8 weeks: None household members: other housing: house ROS Obtained: Yes All systems reviewed & no additional complaints except as documented Constitutional Constitutional: Reports system reviewed and no additional complaints, except as documented, Denies chills and Denies fever(s) Eyes Eyes: Denies eye discharge ENT Ears, Nose, Mouth, and Throat: Denies dysphagia, Denies sore throat and Denies throat swelling Cardiovascular Cardiovascular: Denies chest pain and Denies dyspnea Respiratory Respiratory: Denies chest congestion, Denies cough and Denies dyspnea Gastrointestinal Gastrointestingal: Denies abdominal pain, constipation, diarrhea, dysphagia, nausea or vomiting Genitourinary Female Genitourinary: Reports as per HPI, Reports dysuria, Reports urinary frequ ency, Denies urinary incontinence, Reports urinary hesitancy and Reports urinary urgency Musculoskeletal Musculoskeletal: Denies arthralgias and Reports back pain Integumentary/Breasts Skin/Breast: Denies rash Neurologic Neurologic: Denies paresthesias Allergic/Immunologic Allergic/Immunologic: Denies throat swelling Physical Exam General General appearance: alert and in no apparent distress Head Head exam: atraumatic and normocephalic Eye Eye exam: Present normal appearance, PERRL and EOMI ENT ENT exam: Present normal exam, mucous membranes moist, TM's normal bilaterally and normal external ear exam Neck Neck exam: Present normal inspection, full ROM and trachea midline; Absent tenderness, meningismus or lymphadenopathy Chest Chest inspection: Present normal inspection and symmetric chest wall rise; Absent tenderness Respiratory Respiratory exam: Present normal lung sounds bilaterally; Absent respiratory distress, wheezes or stridor Cardiovascular Cardiovascular exam: Present regular rate, normal rhythm and normal heart sounds Abdominal Exam Abdominal exam: Present soft and normal bowel sounds; Absent distention, tende rness, guarding, rebound, rigidity, incision, psoas sign, obturator sign, heel tap sign, Oglesby's sign, Rovsing's sign or tenderness at McBurney's Point Extremities Exam Extremities exam: Present normal inspection, full ROM and normal capillary refill; Absent tenderness, edema, joint swelling, calf tenderness or cyanosis Back Exam Back exam: Present normal inspection and full ROM; Absent tenderness, CVA tenderness (R) or CVA tenderness (L) Neurological Exam Neurological exam: Present alert, oriented X3 and normal gait Psychiatric Psychiatric exam: Present normal affect and normal mood Skin Skin exam: Present warm, dry, intact and normal color Lymphatic Lymphatic Findings: no adenopathy Medical Decision Making Medical Records Medical records reviewed: No I reviewed the patient's medical records. Screening: Per USPSTF and CDC recommendations, given the prevalence of disease in our region, it is our hospital?s policy to screen for HIV and viral Hepatitis for all patients aged 18 and over and those with ongoing risk factors. Eddie Inquiry Pt receiving controlled substance: No Vital Signs: 06/29/24 13:10 Temperature 98.2 F Temperature Source Oral Pulse Rate [Left Brachial] 59 L Respiratory Rate 18 Blood Pressure [Left Arm] 125/61 Blood Pressure Mean [Left Arm] 82 Blood Pressure Source [Left Arm] Automatic Cuff Blood Pressure Position [Left Arm] Sitting 02 Sat by Pulse Oximetry 97 Oxygen Delivery Method Room Air Lab Data Lab results reviewed: Yes I reviewed the patient's lab results.
[2024-06-29 13:46] LABS: UTC Strep Screen (Rapid) Negative (Negative)
[2024-06-29 14:05] VITALS: BP 125/61; PULSE 59; RESP 18; TEMP 36.8; O2SAT 97
[2024-06-29 14:14] LABS: Coronavirus 19, PCR Not Detected (NotDetected); Influenza A, PCR Not Detected (NotDetected); Influenza B, PCR Not Detected (NotDetected)
== END 2024-06-29 14:12 | disposition home or self-care (01) ==
PROVIDERS: Emergency Provider Nurse Practitioner Family; PCP Internal Medicine
DX: B34.9 Viral infection, unspecified (principal)
CPT/HCPCS: 87636; 87880; 99213; G0381

== ENCOUNTER 2024-09-06 08:00 | Emergency (ER) | payer SELFPAY ==
[2024-09-06 08:15] VITALS: BP 148/91; PULSE 80; RESP 21; TEMP 36.9; O2SAT 97; BMI 44.3
--- NOTE | 2024-09-06 08:25 | EXP.UTC ---
Discharge Plan Disposition Patient Disposition: Home, Self-Care Condition: Good Prescriptions Prescriptions: No Action No Known Home Medications Referrals Follow up/Referrals: Francisco Layton DO [Primary Care Provider] - See instructions Activity Restrictions/Add. Instructions Additional Instructions/Restrictions: *Monitor Temp, Over the counter Motrin or Tylenol as directed/as needed Tylenol every 4 hours and Motrin every 6 hours (as long as your family doctor has told you that you can take it) for fever or pain. and straight to ER if unable to lower temp less than 101.0 after medication given *Warm salt water gargles may help to soothe the throat *Throat Lozenges? *Warm fluids like tea with honey may help to soothe the throat? *Sleep elevated *Humidifier/Vaporizer *Bromfed may cause drowsiness. Know how it effects you (your child) before driving, caring for small child, or sending your child to school. Not other antihistamines/allergy medications while taking bromfed Your throat swab was sent for culture. Those results are typically sent to your primary care. Be sure to follow up in 2-3 days with your family doctor/primary care physician if no improvement so they can review those result and treat if necessary. If you don?t have a primary care doctor, I recommend you get one but in the mean time, you will have to return to a walk in clinic Follow up IMMEDIATELY for new or worsening symptoms or no Noticeable improvement over the next 48-72 hours. 911 for difficulty breathing or swallowing You were tested for today for Mini Respiratory Panel that includes COVID19 Influenza A&B, RhinoVirus and RSV your test result should be back in the next few hours and be available to view on the [facility] Clinical Impressions Clinical Impression: Acute viral syndrome Stand Alone Forms Stand Alone Forms: Work/School Release Instructions Patient Instructions: DI for Viral Syndrome Print Language Print Language: Turkish Discharge ED Provider: Brandee Herring [facility] H[place] General Stated complaint: body aches, chills, fever, congestion Mode of Arrival: Ambulatory Source of Information: Patient Limitations: No Limitations Time Seen by Provider: 09/06/24 08:25 Description of Symptoms (Recalled from Triage Doc. by RN): PATIENT C/O BODY ACHES, FEVER, DIARRHEA, COUGH, CONGESTION AND SNEEZING SINCE YESTERDAY MORNING HEENT Symptoms (Recalled from RN notes): Yes Resp Symptoms (Recalled from RN notes): Yes Skin Symptoms (Recalled from RN notes): No MS Symptoms (Recalled from RN notes): No Functional Status (Recalled from RN notes): WNL History of Present Illness Provider Complaint: Patient states that three of her residents tested positive for flu and then she started yesterday with fever, chills, body aches, nasal congestion, diarrhea and sneezing States today she wasnt feeling any better so she came in to get tested Related Data Home Medications ?Medication ?Instructions ?Recorded ?Confirmed No Known Home Medications 09/06/24 09/06/24 Allergies Allergy/AdvReac Type Severity Reaction Status Date / Time mushroom Allergy Intermediate Hives Verified 12/30/23 09:12 Penicillins (PENICILLINS) Allergy Intermediate I-HIVES Verified 12/30/23 09:12 raspberry Allergy Intermediate Hives Verified 12/30/23 09:12 Worker's Comp Is this a Worker's Comp case?: No [facility] Disclaimer: The information contained in this section may have been updated after the patient was seen, as this information can be updated by other users. Medical History (Updated 09/06/24 @ 08:36 by Brandee Herring APRN) Urinary tract infection Anxiety Depression History of PCOS Asthma Surgical History No significant past surgical history Family History Family/Other No significant family history Social History (Updated 06/30/24 @ 15:45 by Efren Sands APRN) Smoking Status: Current every day smoker tobacco type: cigarettes packs per day: 1 alcohol intake: never substance use type: marijuana current occupational status: employed Travel in the last 8 weeks: None household members: other housing: house Have you lived/traveled outside [place] in past 30 days?: No Contact w/someone who lives/traveled outside [place] past 30 days?: No Exposure to someone with infectious disease in past 14 days?: No Do you have a fever (greater than 100.4 F or 38 C)?: No Have you tested positive for COVID-19: No Exposed to someone with COVID-19 in past 14 days?: No Do you have a sore throat?: Yes Do you have a cough?: Yes Do you have any weakness?: Yes Do you have any diarrhea?: Yes Are you experiencing any unusual bleeding?: No Do you have any muscle aches/pain?: No Do you have any abdominal pain?: No Are you experiencing loss of taste or smell?: No ROS Obtained: Yes All systems reviewed & no additional complaints except as documented and Yes Systems reviewed as appropriate & no additional complaints except as documented Constitutional Constitutional: Reports system reviewed and no additional complaints, except as documented, Reports as per HPI, Reports body ache, Reports chills and Reports fever(s) Eyes Eyes: Reports system reviewed and no additional complaints, except as documented and Reports as per HPI ENT Ears, Nose, Mouth, and Throat: Reports system reviewed and no additional complaints, except as documented, Reports as per HPI, Reports nasal congestion and Reports nasal discharge Cardiovascular Cardiovascular: Reports system reviewed and no additional complaints, except as documented and Reports as per HPI Respiratory Respiratory: Reports system reviewed and no additional complaints, except as documented and Reports as per HPI Gastrointestinal Gastrointestingal: Reports system reviewed and no additional complaints, except as documented, as per HPI and diarrhea Physical Exam General General appearance: alert and in no apparent distress ENT ENT exam: Present mucous membranes moist and TM's normal bilaterally Expanded ENT Exam Nose exam: Absent sinus tenderness Throat exam: Present normal inspection Respiratory Respiratory exam: Present normal lung sounds bilaterally; Absent respiratory distress or wheezes Cardiovascular Cardiovascular exam: Present regular rate, normal rhythm and normal heart sounds Abdominal Exam Abdominal exam: Present soft and normal bowel sounds; Absent distention or tenderness Neurological Exam Neurological exam: Present alert, oriented X3 and normal gait Medical Decision Making Medical Records Screening: Per USPSTF and CDC recommendations, given the prevalence of disease in our region, it is our hospital?s policy to screen for HIV and viral Hepatitis for all patients aged 18 and over and those with ongoing risk factors. Eddie Inquiry Pt receiving controlled substance: No Eddie was queried for this patient: No Vital Signs: 09/06/24 08:15 Temperature 98.4 F Temperature Source Oral Pulse Rate [Left Brachial] 80 Respiratory Rate 21 Blood Pressure [Left Arm] 148/91 H Blood Pressure Mean [Left Arm] 110 Blood Pressure Source [Left Arm] Automatic Cuff Blood Pressure Position [Left Arm] Sitting 02 Sat by Pulse Oximetry 97 Oxygen Delivery Method Room Air Lab Data Lab results reviewed: Yes I reviewed the patient's lab results.
[2024-09-06 08:32] LABS: UTC Influenza A Antigen Negative (Negative); UTC Influenza B Antigen Negative (Negative)
[2024-09-06 08:35] VITALS: BP 148/91; PULSE 80; RESP 21; TEMP 36.9; O2SAT 97
[2024-09-06 08:57] LABS: Coronavirus 19, PCR Not Detected (NotDetected); Human Rhinovirus Not Detected (NotDetected); Influenza B, PCR Not Detected (NotDetected); Respiratory Syncytial Virus Not Detected (NotDetected)
[2024-09-06 10:45] LABS: Influenza A, PCR Detected (NotDetected)
== END 2024-09-06 08:38 | disposition home or self-care (01) ==
PROVIDERS: Emergency Provider Nurse Practitioner; PCP Internal Medicine
DX: B34.9 Viral infection, unspecified (principal)
CPT/HCPCS: 87631; 87804; 99212; G0381

== ENCOUNTER 2025-01-16 16:02 | Emergency (ER) | payer OTHER, SELFPAY ==
--- NOTE | 2025-01-16 16:10 | XR_ITS ---
PROCEDURE INFORMATION: Exam: XR Chest Exam date and time: 01/16/2025 4:05 PM Age: 34 years old Clinical indication: Pain; Cough and shortness of breath; Left-sided; Additional info: Shortness of air, chest pain on left anterior side TECHNIQUE: Imaging protocol: Radiologic exam of the chest. Views: 1 view. COMPARISON: CT ANGIO CHEST PE PROTOCOL 01/05/2023 12:26 AM FINDINGS: Lungs: Unremarkable. No consolidation. Pleural spaces: Unremarkable. No pleural effusion. No pneumothorax. Heart/Mediastinum: Unremarkable. No cardiomegaly. Bones/joints: Unremarkable. IMPRESSION: No acute findings.
--- NOTE | 2025-01-16 16:11 | HMH.EDGENADL ---
Discharge Plan Disposition Patient Disposition: Home, Self-Care Condition: Good Prescriptions Prescriptions: No Action clotrimazole [Antifungal Ringworm] 1 % cream 1 applic topical BID 28 Days Qty: 30 0RF Rx Instructions: apply to rash as directed Referrals Follow up/Referrals: Alpesh Ngo MD [Primary Care Provider, Family Practice] - See instructions Activity Restrictions/Add. Instructions Additional Instructions/Restrictions: Please follow-up with your family physician, utilize [id number] cold and flu medication as well as ibuprofen and Tylenol for symptomatic relief, please return to the emergency department for any worsening signs or symptoms. Clinical Impressions Clinical Impression: Upper respiratory infection, viral Stand Alone Forms Stand Alone Forms: Work/School Release Instructions Patient Instructions: DI for Acute Bronchitis Print Language Print Language: Sinhala Discharge ED Provider: Franklyn Watson General Adult HPI <SHANE Lorenz - Last Filed: 01/16/25 17:19> General Chief complaint: Upper Respiratory Infection Stated complaint: Headache; Congestion; Chills; Bodyaches Time Seen by Provider: 01/16/25 16:06 Mode of Arrival: Ambulatory Source of Information: Patient Limitations: No Limitations History of Present Illness HPI narrative: 34-year-old female presents the emergency department with subjective fever chills productive cough, congestion, headache, and lung pain , for the last 4 days, she is a certified medical transcriptionist at a [employer], does admits to sick contacts, denies any overt chest pain, admits to shortness of breath at times, denies any sore throat, denies any abdominal pain, denies any nausea, does admit to an episode of what sounds like posttussive emesis today, denies any urinary type symptomatology, denies constipation no diarrhea, other past medical history consistent with generalized anxiety disorder, not currently on any anixolytics, patient is a current everyday smoker, denies any alcohol or drug use, otherwise denies any relevant past medical history takes no other medications at home initial triage vitals unremarkable. Onset (ago): day(s) Related Data Previous Rx's ?Medication ?Instructions ?Recorded clotrimazole 1 % topical cream 1 applic topical BID 4 weeks #30 09/19/24 (Antifungal Ringworm) grams Allergies Allergy/AdvReac Type Severity Reaction Status Date / Time mushroom Allergy Intermediate Hives Verified 01/16/25 16:25 Penicillins (PENICILLINS) Allergy Intermediate I-HIVES Verified 01/16/25 16:25 raspberry Allergy Intermediate Hives Verified 01/16/25 16:25 PFSH <SHANE Lorenz - Last Filed: 01/16/25 17:19> [facility] Disclaimer: The information contained in this section may have been updated after the patient was seen, as this information can be updated by other users. Medical History Urinary tract infection Anxiety Depression History of PCOS Asthma Surgical History No significant past surgical history Family History Family/Other No significant family history Social History Smoking Status: Current every day smoker tobacco type: cigarettes packs per day: 1 alcohol intake: never substance use type: marijuana current occupational status: employed Travel in the last 8 weeks?: None household members: other housing: house Have you lived/traveled outside US in past 30 days?: No Contact w/someone who lives/traveled outside US past 30 days?: No Exposure to someone with infectious disease in past 14 days?: No Do you have a fever (greater than 100.4 F or 38 C)?: No Have you tested positive for COVID-19?: No Exposed to someone with COVID-19 in past 14 days?: No Do you have a sore throat?: No Do you have a cough?: No Do you have any weakness?: No Do you have any diarrhea?: No Are you experiencing any unusual bleeding?: No Do you have any muscle aches/pain?: No Do you have any abdominal pain?: No Are you experiencing loss of taste or smell?: No Other Medical History Have you received the Flu Vaccine for this season: Yes Have you received the Pneumonia Vaccine: No <SHANE Lorenz - Last Filed: 01/16/25 17:19> ROS Obtained: Yes All systems reviewed & no additional complaints except as documented Physical Exam <SHANE Lorenz - Last Filed: 01/16/25 17:19> General General appearance: alert and in no apparent distress Head Head exam: atraumatic and normocephalic Eye Eye exam: Present PERRL and EOMI ENT ENT exam: Present normal oropharynx and mucous membranes moist Neck Neck exam: Present normal inspection Chest Chest inspection: Present normal inspection and symmetric chest wall rise Respiratory Respiratory exam: Present normal lung sounds bilaterally and other (There are no crackles or rales throughout bilateral lung hope.); Absent respiratory distress, wheezes, stridor or accessory muscle use Cardiovascular Cardiovascular exam: Present regular rate and normal rhythm Abdominal Exam Abdominal exam: Present soft; Absent tenderness Extremities Exam Extremities exam: Present normal inspection Neurological Exam Neurological exam: Present alert and oriented X3 Psychiatric Psychiatric exam: Present normal affect Skin Skin exam: Present warm and dry Medical Decision Making <SHANE Lorenz - Last Filed: 01/16/25 17:19> Medical Records Medical records reviewed: Yes I reviewed the patient's medical records. Screening: Per USPSTF and CDC recommendations, given the prevalence of disease in our region, it is our hospital?s policy to screen for HIV and viral Hepatitis for all patients aged 18 and over and those with ongoing risk factors. Eddie Inquiry Pt receiving controlled substance: No Eddie was queried for this patient: No Vital Signs: 01/16/25 16:19 01/16/25 17:28 Temperature 98.3 F 98 F Temperature Source Oral Oral Pulse Rate 62 Pulse Rate [Left Radial] 68 Respiratory Rate 15 15 Blood Pressure 134/74 Blood Pressure [Left Arm] 143/88 H Blood Pressure Mean [Left Arm] 106 Blood Pressure Source Automatic Cuff Blood Pressure Source [Left Arm] Automatic Cuff Blood Pressure Position Sitting Blood Pressure Position [Left Arm] Sitting 02 Sat by Pulse Oximetry 99 Oxygen Delivery Method Room Air Room Air Lab Data Lab Results 01/16/25 16:10: SARS-CoV-2 (PCR) Not detected, Influenza A Untype (PCR) Not detected, Influenza Type B (PCR) Not detected Orders (Tests/Meds): ORDERS Category Date Time Status XR chest portable Stat Exams 01/16/25 16:10 Completed Rapid PCR Covid and Flu A/B Stat Lab 01/16/25 16:10 Completed Medical Decision Narrative: 34-year-old female presents emerged part with URI type symptomatology, differential diagnose, not limited to COVID-19, acute bronchitis, pneumonia, viral syndrome, viral rhinosinusitis, allergic rhinitis among others. Discussed this case with Dr. Watson Will do a rapid PCR COVID and flu, chest x-ray Reviewed the patient's chest x-ray along the corresponding radiologic report, no acute findings. COVID-19 and influenza are negative via PCR. I discussed the results with the patient the bedside, patient is in agreement with current discharge plan/treatment plan, most likely viral bronchitis, chest x-ray is negative for pneumonia or any consolidates. Recommend [id number] cold and flu medication for symptomatic relief, patient will follow-up with PCP, and return to the emergency department any worsening signs or symptoms. <Franklyn Watson MD - Last Filed: 01/16/25 23:06> Vital Signs: 01/16/25 16:19 01/16/25 17:28 Temperature 98.3 F 98 F Temperature Source Oral Oral Pulse Rate 62 Pulse Rate [Left Radial] 68 Respiratory Rate 15 15 Blood Pressure 134/74 Blood Pressure [Left Arm] 143/88 H Blood Pressure Mean [Left Arm] 106 Blood Pressure Source Automatic Cuff Blood Pressure Source [Left Arm] Automatic Cuff Blood Pressure Position Sitting Blood Pressure Position [Left Arm] Sitting 02 Sat by Pulse Oximetry 99 Oxygen Delivery Method Room Air Room Air Lab Data Lab Results 01/16/25 16:10: SARS-CoV-2 (PCR) Not detected, Influenza A Untype (PCR) Not detected, Influenza Type B (PCR) Not detected Orders (Tests/Meds): ORDERS Category Date Time Status XR chest portable Stat Exams 01/16/25 16:10 Completed Rapid PCR Covid and Flu A/B Stat Lab 01/16/25 16:10 Completed Medical Decision Narrative: 34-year-old female presents emerged part with URI type symptomatology, differential diagnose, not limited to COVID-19, acute bronchitis, pneumonia, viral syndrome, viral rhinosinusitis, allergic rhinitis among others. Discussed this case with Dr. Watson Will do a rapid PCR COVID and flu, chest x-ray Reviewed the patient's chest x-ray along the corresponding radiologic report, no acute findings. COVID-19 and influenza are negative via PCR. I discussed the results with the patient the bedside, patient is in agreement with current discharge plan/treatment plan, most likely viral bronchitis, chest x-ray is negative for pneumonia or any consolidates. Recommend [id number] cold and flu medication for symptomatic relief, patient will follow-up with PCP, and return to the emergency department any worsening signs or symptoms. ZHENG attestation I was consulted by the ZHENG, and we discussed the complexity of problems being addressed. I approved the treatment and management plan for this patient's care in the emergency department, thus performing a substantial portion of the medical decision making. I also personally evaluated the patient at bedside and independently interpreted her chest x-ray revealing no acute cardiopulmonary pathology. Clear lung sounds. Patient in no acute distress. Appropriate for discharge with PCP follow-up for viral URI. Franklyn Watson MD Critical Care <SHANE Lorenz - Last Filed: 01/16/25 17:19> Critical Care Time Critical Care Time: No
[2025-01-16 16:15] LABS: Coronavirus 19, PCR Not Detected (NotDetected); Influenza A, PCR Not Detected (NotDetected); Influenza B, PCR Not Detected (NotDetected)
[2025-01-16 16:19] VITALS: BP 143/88; PULSE 68; RESP 15; TEMP 36.8; O2SAT 99; BMI 47.2
--- OUTSIDE RECORDS SUMMARY | 2025-01-16 16:27 | XMS_ITS | Clinical Summary ---
Author Organization [facility] Address [address] [place] [phone] Phone Care Team Providers Care Faculty Physician Name Role Phone Alpesh Ngo MD Primary Care Provider [phone] Allergies Active Allergy Reactions Criticality Noted Date Comments Penicillin G Other (See Comments) 01/12/2024 Was young when she had a reaction Medications No known medications Social History Tobacco Use Types Packs/Day Years Used Date Smoking Tobacco: Every Day Cigarettes Smokeless Tobacco: Never Tobacco Cessation:Ready to Q uit: Not Asked; Counseling Given: Not Answered Alcohol Use Standard Drinks/Week Comments Never 0 (1 standard drink = 0.6 oz pur e alcohol) Comments No Sex and Gender Information Value Date Recorded Sex Assigned at Not on file Legal Sex Female 5:53 AM EDT Gender Identity Not on file Sexual Orientation Not on file Obstetrics History Last Filed Vital Signs Vital Sign Reading Time Taken Comments Blood Pressure 149/83 08/07/2024 3:02 PM EST Pulse 56 08/07/2024 6:18 PM EST Temperature 36.5 C (97.7 F) 08/07/2024 3:02 PM EST Respiratory Rate 18 08/07/2024 6:18 PM EST Oxygen Saturation 99% 08/07/2024 6:18 PM EST Inhaled Oxygen Concentration - - Weight 141.1 kg (311 lb) 08/07/2024 3:02 PM EST Height 175.3 cm (5' 9 ) 01/12/2024 6:00 AM EDT Body Mass Index 45.93 01/12/2024 6:00 AM EDT Plan of Treatment Health Maintenance Due Date Last Done Comments Annual Wellness Exam 1995 Hepatitis B Vaccine (1 of 3 - 19+ 3-dose series) 2011 Pneumococcal Vaccine 0-49 (1 of 2 - PCV) 2011 Cervical Cancer Screening 2013 Pap Smear 2013 DTaP/TDaP/Td (1 - Tdap) 03/01/2020 02/29/2020 HPV/Pap Cotest 2022 COVID-19 Vaccine (1 - 2023-2 5 season) 2024 Influenza Vaccine (Season Ended) 2025 Meningococcal B Vaccine Aged Out No l onger eligible based on patient's age to complete this topic Care Teams Faculty Physician Relationship Specialty Start Date End Date Alpesh Ngo MD [address] [place] [address] PCP - General Family Medicine 08/07/24
[2025-01-16 17:28] VITALS: BP 134/74; PULSE 62; RESP 15; TEMP 36.6; O2SAT 98
== END 2025-01-16 17:30 | disposition home or self-care (01) ==
PROVIDERS: Physician Assistant; Emergency Provider Student in an Organized Health Care Education/Training Program; PCP Family Medicine
DX: R51.9 Headache, unspecified (principal); J06.9 Acute upper respiratory infection, unspecified; B34.9 Viral infection, unspecified; R05.1 Acute cough; F17.210 Nicotine dependence, cigarettes, uncomplicated
CPT/HCPCS: 71045; 87636; 99283

== ENCOUNTER 2025-05-01 16:58 | Emergency (ER) | payer OTHER, SELFPAY ==
--- OUTSIDE RECORDS SUMMARY | 2022-12-13 09:00 | XMS_ITS | Continuity of Care Document ---
Author Organization [facility] Address [address] [place] [address] Phone Care Team Providers Care Meter And Service Line Inspector Name Role Phone Daniel Wilkerson DO Unavailable Unavailable Allergies, Adverse Reactions, Alerts Substance Reaction Status Criticality No Known Allergies Active No Inform ation Medications Medication Instructions Dosage Effective Dates (start - stop) Status Comments Macrobid 100 mg capsule take 1 capsule by oral route every 12 hours with food 100 MG - Active cephalexin 500 mg capsule take 1 capsule by oral route every 6 hours 500 MG - Active ibuprofen 800 mg tablet take 1 tablet by oral route 2 times every day with food 800 MG - Active Procedures Procedure Date URINALYSIS, AUTO W/SCOPE OFFICE/OUTPATIENT VISIT, EST SYST BP LT 130 MM HG DIAST BP 80-89 MM HG WEIGHT RECORDED BODY MASS INDEX DOCD Results Test Name Date and Time Measure Units Reference Range Abnormal Flag Status Comments Panel Description: UA & MICRO Final WBC/UA 13:56:00 0-5 0-2 Final RBC/US 13:56:00 NEG 0-1 Final CAST 13:56:00 NEG NEGATIVE Final CRYSTALS 13:56:00 NEG NEGATIVE Final BACTERIA 13:56:00 TRACE NONE SEEN Final EPITHELIAL 13:56:00 5-10 NONE SEEN Final MUCOUS 13:56:00 NEG NEGATIVE Final YEAST 13:56:00 NEG NEGATIVE Final OTHER 13:56:00 N/A Final APPEARANCE 13:56:00 Slightly Cloudy CLEAR Final COLOR 13:56:00 Yellow YELLOW/STRAW Final SPEC GRAVITY 13:56:00 >=1.030 1.000 - 1.030 Final PH 13:56:00 5.5 5.0-7.0 Final PROTEIN 13:56:00 Negative NEGATIVE Final GLUCOSE 13:56:00 Negative NEGATIVE Final KETONES 13:56:00 Negative NEGATIVE Final BILIRUBIN 13:56:00 Negative NEGATIVE Final BLOOD 13:56:00 Trace-intact NEGATIVE Final NITRITE 13:56:00 Negative NEGATIVE Final LEUKOCYTES 13:56:00 Negative NEGATIVE Final UROBILINOGEN 13:56:00 0.2 E.U./dL 0-1 Final Advance Directives Directive Yes / No Effective Date File Name No Information Encounters Encounter Description Practice Location Reason(s) For Visit Diagnoses Date Provider OFFICE/OUTPA TIENT VISIT, EST [facility], [address] [place] [address], [facility], tel:[phone] [facility] uti (chief complaint) Morbid (severe) obesity due to excess caloriesDietary counseling and surveillancePrescribed Activity/Exercise CounselingAcute UTI 3 Rock Sanchez. [address] [place] [address], [id number], . tel:[phone] [facility], [address] [place] [address], [id number], tel:[phone] [facility] No Information 3 Devonte Mccall. [address] [place] [address], [id number], . tel:[phone] [facility], [address] [place] [address], [id number], tel:[phone] [address] [place] [address] [facility] Toothache (chief complaint) Obesity, unspecifiedDietary counseling and surveillancePrescribed Activity/Exercise CounselingDental abscess 3 Ashleigh Mcmanus. [address] [place], [place], [id number], . tel:[phone] [id number] [facility], [address] [place], [address], [place] tel:[phone] [address] [place] [address] [facility] annual exam (chief complaint) pelvic pain (chief complaint) Morbid (severe) obesity due to excess caloriesDietary counseling and surveillancePrescribed Activity/Exercise CounselingPCOS (polycystic ovarian syndrome)Irregular mensesPelvic painEncounter for gynecological examination (general) (routine) without abnormal findings 3 Devonte Mccullough. [address] [place], [place], [id number], [place]. tel:[phone] Family History Family Member Type Diagnosis Age At Onset No Information Payers Payer name Insurance type Covered libertarian ID jeremy eldridge(s) [facility] [id number] Medicaid Wrap Payer [id number] Social History Type Description Quantity Date Captured Comments Alcohol Use Details Unknown Caffeine Use Details Unknown Tobacco Use Status Smoking Status No Information Sex Female Vital Signs Date / Time: Height Weight BMI Pulse Rate Blood Pressure Temperature Respiratory Rate Body Surface Area Head Circumference Head Circ. Percentile Wt./Navjot. Percentile BMI percentile Pulse Ox Inhaled Ox 1:15 PM 70.00 in 137.076 kg (302.20 lbs) 43.3 6 kg/m eter (2) 74 /min 118/80 mm[Hg] 96.00 F 20 /min 2.60 meter(2) 98 % Chief Complaint And Reason For Visit From encounter dated '12/13/2022 13:00'. uti (chief complaint). Description: The severity of the problem is moderate. The problem has worsened. The symptoms are intermittent. Presenting/Initial symptoms include burning and suprapubic pain. Symptoms are not associated with or recent catheterization. Aggravating factors include urination. Symptoms are not aggravated by baths, certain foods or sexual activity. Symptoms are relieved by increased fluids. Symptoms are not relieved by OTC analgesics or rest. Associated symptoms include dysuria. Pertinent negatives include abdominal pain, dribbling, fatigue, fever, flank pain, frequency, hematuria, hesitancy, nausea, nocturia, pelvic pain, penile discharge, pressure, rash, retention, urgency, vaginal discharge or vomiting. Plan Of Treatment Date Type Action Status Goal Preventive Visit. Due on Aug due Goal PAP. Due on due Goal Depression screening. Due on due Goal Dietary management education , guidance, and counseling completed Goal Depression screening. Due on due Goal Preventive Visit. Due on Aug due Goal PAP. Due on due Goal Dietary management education , guidance, and counseling completed Goal Depression screening. Due on due Goal Preventive Visit. Due on Aug due Goal PAP. Due on due Goal Tobacco cessation counseling completed Goal Dietary management education , guidance, and counseling completed Referral Ordered: OB TRANSVAGINAL US, NON-OB ordered History Of Present Illness Encounter Date Complaint History Of Prese nt Illness uti The severity of the problem is moderate. The problem has worsened. The symptoms are intermittent. Presenting/Initial symptoms include burning and suprapubic pain. Symptoms are not associated with or recent catheterization. Aggravating factors include urination. Symptoms are not aggravated by baths, certain foods or sexual activity. Symptoms are relieved by increased fluids. Symptoms are not relieved by OTC analgesics or rest. Associated symptoms include dysuria. Pertinent negatives include abdominal pain, dribbling, fatigue, fever, flank pain, frequency, hematuria, hesitancy, nausea, nocturia, pelvic pain, penile discharge, pressure, rash, retention, urgency, vaginal discharge or vomiting. Toothache The symptoms beg an 1 week ago. The symptoms are reported as being moderate. The symptoms occur daily. The client states the symptoms are acute. tooth pain left upper back tooth swelling on right bottom jaw denies fever chills pelvic pain Additional infor mation: c/o pelvic pain right side comes and goes for 2 months. has been told she has pcos. annual exam The client does use tobacco. Tobacco cessation has been discussed. She does not drink alcohol. Additional information: last pap was in 2014 and wnl. never had an abnormal pap. irregular menses q1-3 months . Instructions Date Instruction Additional Infor mation Prescribed activity/ exercise education Related to Prescribed Activity/Exercise Counseling Dietary management e ducation, guidance, and counseling Related to Dietary Surveillance and Counseling Patient instructed t o RTC clinic or visit ER if symptoms progress, persist, or worsen. Take medications as instructed. Scheduled follow up as instructed. Related to Dental abscess Prescribed activity/ exercise education Related to Prescribed Activity/Exercise Counseling Dietary management e ducation, guidance, and counseling Related to Dietary Surveillance and Counseling pap and exam done. D eclined control to help regulate menses because she wants to conceive. labs done today for pcos and irregular menses. TVUS wnl. nuswab done. will do telehealth to discuss any abnormal lab results Related to Encounter for gynecological examination (general) (routine) without abnormal findings Prescribed activity/ exercise education Related to Prescribed Activity/Exercise Counseling Dietary management e ducation, guidance, and counseling Related to Dietary Surveillance and Counseling Assessments Type Assessment Date assessment Morbid (severe) obesity due to e xcess calories assessment Dietary counseling and surveilla nce assessment Prescribed Activity/Exercise Cou nseling assessment Acute UTI Mental Status Date Cognitive Assessment Orientation - [place] ed to time, place, person, situation.
[2025-05-01 17:24] VITALS: BP 138/83; PULSE 89; RESP 14; TEMP 36.9; O2SAT 99; BMI 45.8
--- OUTSIDE RECORDS SUMMARY | 2025-05-01 17:45 | XMS_ITS | Clinical Summary ---
Author Organization [facility] Address [address] [place] [phone] Phone Care Team Providers Care Thread Weaver Name Role Phone Alpesh Ngo MD Primary Care Provider [phone] Allergies Active Allergy Reactions Criticality Noted Date [...] COVID-19 Vaccine (1 - 2023-2 5 season) 2025 Influenza Vaccine (#1) 2025 Meningococcal B Vaccine Aged Out No l onger eligible based on patient's age to complete this topic Care Teams Thread Weaver Relationship Specialty Start Date End Date Alpesh Ngo MD PCP - General Family Medicine 08/07/24
--- NOTE | 2025-05-01 18:01 | CT_ITS ---
PROCEDURE INFORMATION: Exam: CT Head Without Contrast Exam date and time: 05/01/2025 8:21 PM Age: 34 years old Clinical indication: Injury or trauma; Fall; Blunt trauma (contusions or hematomas); Consciousness not specified; Additional info: Head injury TECHNIQUE: Imaging protocol: Computed tomography of the head without contrast. Radiation optimization: All CT scans at this facility use at least one of these dose optimization techniques: automated exposure control; mA and/or kV adjustment per patient size (includes targeted exams where dose is matched to clinical indication); or iterative reconstruction. COMPARISON: No relevant prior studies available. FINDINGS: Limitations: Streak artifact - mild. Brain: No intracranial hemorrhage. No mass. No edema. Cerebral ventricles: No hydrocephalus. Paranasal sinuses: No acute sinusitis. Mastoid air cells: No significant effusion. Orbital cavities: Unremarkable as visualized. Bones: No acute fracture. Soft tissues: Unremarkable. IMPRESSION: No intracranial hemorrhage.
--- NOTE | 2025-05-01 18:12 | ED_ITS ---
<Statement entered by Jas Breaux MD - 05/02/25 02:45> I was consulted by the ZHENG, and we discussed the complexity of the problems being addressed. I approve the treatment and management plan for this patient's care in the emergency department, thus performing a substantive portion of the medical decision making. Jas Breaux MD Discharge Plan Disposition Patient Disposition: Home, Self-Care Prescriptions Prescriptions: New ketorolac 10 mg tablet 10 mg PO Q8H 5 Days Qty: 15 0RF ondansetron 4 mg tablet,disintegrating 4 mg PO Q8H PRN (Reason: nausea and vomiting) 5 Days Qty: 20 0RF No Action clotrimazole [Antifungal Ringworm] 1 % cream 1 applic topical BID 28 Days Qty: 30 0RF Rx Instructions: apply to rash as directed Referrals Follow up/Referrals: Alpesh Ngo MD [Primary Care Provider, Family Practice] - See instructions Activity Restrictions/Add. Instructions Additional Instructions/Restrictions: Increase fluids and rest. Take meds as directed. If symptoms continue please follow-up with your PCP for further treatment and management of migraine and concussion. Clinical Impressions Clinical Impression: Concussion without loss of consciousness Instructions Patient Instructions: DI for Concussion Print Language Print Language: Nepali Discharge ED Provider: Jas Breaux General Adult HPI General Chief complaint: Head Injury Stated complaint: AO hit head at work 04/28/25; Forgetful Time Seen by Provider: 05/01/25 17:45 Mode of Arrival: Ambulatory Source of Information: Patient Description of Symptoms (Recalled from ER Triage Doc. by RN): pt states on Thursday she sat in a chair and hit the top of her head on a cabinet hanging off the wall. pt c/o brain fog and a HIRSCH. pt states the pain is 8/10, constant and sharp. The pain is worse with movement of her head. No LOC. pt states she is concerned she has a concussion. History of Present Illness HPI narrative: 34-year-old female presents to the ED today for complaint of hitting her head on Thursday. She says she hit her head on a [employer] table. She says she was at work and sat down and smacked her head. She says since then she says she has had brain fog, headache, nausea, dizziness. She says she has been forgetting things that she normally does not forget. She says it throbs and the spot she hit her head then. There is no open areas. She says she is tearful. No fevers or chills. No vomiting or diarrhea. Related Data Previous Rx's ?Medication ?Instructions ?Recorded clotrimazole 1 % topical cream 1 applic topical BID 4 weeks #30 09/19/24 (Antifungal Ringworm) grams ketorolac 10 mg tablet 10 mg PO Q8H 5 days #15 tabs 05/01/25 ondansetron 4 mg disintegrating 4 mg PO Q8H PRN nausea and 05/01/25 tablet vomiting 5 days #20 tabs Allergies Allergy/AdvReac Type Severity Reaction Status Date / Time mushroom Allergy Intermediate Hives Verified 05/01/25 17:36 Penicillins (PENICILLINS) Allergy Intermediate I-HIVES Verified 05/01/25 17:36 raspberry Allergy Intermediate Hives Verified 05/01/25 17:36 PFSH PFSH Disclaimer: The information contained in this section may have been updated after the patient was seen, as this information can be updated by other users. Medical History Urinary tract infection Anxiety Depression History of PCOS Asthma Surgical History No significant past surgical history Family History Family/Other No significant family history Social History Smoking Status: Current every day smoker tobacco type: cigarettes packs per day: 1 alcohol intake: never substance use type: marijuana current occupational status: employed Travel in the last 8 weeks?: None household members: other housing: house Have you lived/traveled outside US in past 30 days?: No Contact w/someone who lives/traveled outside US past 30 days?: No Exposure to someone with infectious disease in past 14 days?: No Do you have a fever (greater than 100.4 F or 38 C)?: No Have you tested positive for COVID-19?: No Exposed to someone with COVID-19 in past 14 days?: No Do you have a sore throat?: No Do you have a cough?: No Do you have any weakness?: No Do you have any diarrhea?: No Are you experiencing any unusual bleeding?: No Do you have any muscle aches/pain?: No Do you have any abdominal pain?: No Are you experiencing loss of taste or smell?: No Other Medical History Have you received the Flu Vaccine for this season: Yes Have you received the Pneumonia Vaccine: No ROS Obtained: Yes Systems reviewed as appropriate & no additional complaints except as documented Constitutional Constitutional: Reports as per HPI Physical Exam General General appearance: alert and in no apparent distress Head Head exam: normocephalic Eye Eye exam: Present PERRL ENT ENT exam: Present mucous membranes moist Neck Neck exam: Present trachea midline Chest Chest inspection: Present symmetric chest wall rise Respiratory Respiratory exam: Present normal lung sounds bilaterally Cardiovascular Cardiovascular exam: Present regular rate, normal rhythm, normal heart sounds, +S1 and +S2 Abdominal Exam Abdominal exam: Present soft and normal bowel sounds Extremities Exam Extremities exam: Present normal inspection, full ROM and normal capillary refill Neurological Exam Neurological exam: Present alert and oriented X3 Psychiatric Psychiatric exam: Present normal affect and normal mood Skin Skin exam: Present warm and dry Medical Decision Making Medical Records Screening: Per USPSTF and CDC recommendations, given the prevalence of disease in our region, it is our hospital?s policy to screen for HIV and viral Hepatitis for all patients aged 18 and over and those with ongoing risk factors. Eddie Inquiry Pt receiving controlled substance: No Eddie was queried for this patient: No Vital Signs: 05/01/25 17:24 Temperature 98.4 F Temperature Source Oral Pulse Rate [Left] 89 Respiratory Rate 14 Blood Pressure [Right Arm] 138/83 Blood Pressure Mean [Right Arm] 101 Blood Pressure Source [Right Arm] Automatic Cuff Blood Pressure Position [Right Arm] Sitting 02 Sat by Pulse Oximetry 99 Oxygen Delivery Method Room Air Lab Data Lab Results 05/01/25 18:58: WBC 9.7, RBC 5.22, Hgb 15.1, Hct 45.3, MCV 86.8, MCH 28.9, MCHC 33.3, RDW 13.1, Plt Count 331, MPV 10.1, Neut % (Auto) 69.9, Lymph % (Auto) 23.6, [place] % (Auto) 4.8, Eos % (Auto) 0.9, Baso % (Auto) 0.5, Neut # (Auto) 6.8, Lymph # (Auto) 2.3, [place] # (Auto) 0.5, Eos # (Auto) 0.1, Baso # (Auto) 0.1, Sodium 139, Potassium 4.2, Chloride 102, Carbon Dioxide 27, Anion Gap 14.2, BUN 17, Creatinine 0.70, Estimated Creat Clear 121, Estimated GFR 97, Est GFR ( Amer) 117, Glucose 101 H, Calcium 9.3, Magnesium 1.9, Total Bilirubin 0.4, AST 35, ALT 32, Alkaline Phosphatase 89, Total Protein 7.4, Albumin 4.5, Globulin 2.9, Albumin/Globulin Ratio 1.6, Lipase 97 05/01/25 19:40: Urine HCG, Qual Negative 05/01/25 18:58 05/01/25 18:58 Orders (Tests/Meds): ED MEDICATIONS Discontinued Medications Generic Name Dose Route Start Last Admin Trade Name Freq PRN Reason Stop Dose Admin Dexamethasone Sodium Phosphate 8 mg 05/01/25 18:08 05/01/25 19:21 Dexamethasone 4mg/Ml 1ml Vial IV 05/01/25 18:09 8 mg ONCE ONE Administration Diphenhydramine HCl 50 mg 05/01/25 18:02 05/01/25 19:19 Diphenhydramine 50mg/Ml Vial IV 05/01/25 18:03 50 mg ONCE ONE Administration Sodium Chloride 1,000 mls @ 999 mls/hr 05/01/25 18:02 05/01/25 19:23 Sod Chlor 0.9% 1000ml Bag IV 05/01/25 19:02 999 mls/hr .Q1H1M ONE Administration Ketorolac Tromethamine 30 mg 05/01/25 18:08 05/01/25 19:19 Ketorolac 30mg/Ml Vial IV 05/01/25 18:09 30 mg ONCE ONE Administration Prochlorperazine Edisylate 5 mg 05/01/25 18:08 05/01/25 19:19 Prochlorperazine 10mg/2ml Vial IV 05/01/25 18:09 5 mg ONCE ONE Administration ORDERS Category Date Time Status CT head/brain wo con Stat Cat Scan 05/01/25 18:01 Completed CBC [Complete Blood Count Auto Diff] Stat Lab 05/01/25 18:58 Completed Comprehensive Metabolic Panel Stat Lab 05/01/25 18:58 Completed Lipase Stat Lab 05/01/25 18:58 Completed Magnesium Stat Lab 05/01/25 18:58 Completed Urine , HCG Qual. Stat Lab 05/01/25 19:40 Completed Medical Decision Narrative: patient is a 34-year-old female presenting to the emergency department for evaluation of headache after hitting her head on Thursday. Symptoms have worsened.. Patient is hemodynamically stable and nontoxic-appearing upon arrival, afebrile. Differential diagnosis includes migraine, concussion, among others. Workup will be conducted with hematologic labs, specific imaging. Initial inventions include crystalloid bolus, analgesics. Patient has received Toradol, Compazine, Benadryl and steroid for her migraine. She says her headache is better. We are still waiting on CT scan results. CT results are negative for anything acute. Patient's headache has improved. Patient is safe for discharge home. Patient to follow-up with her PCP for further treatment and management of concussion and migraine symptoms Critical Care Critical Care Time Critical Care Time: No
[2025-05-01 19:12] LABS: Hematocrit 45.3 % (37.0-47.0); Hemoglobin 15.1 g/dL (12.2-16.2); Immature Granulocytes % 0.3 %; Mean Corpuscular HGB Conc 33.3 g/dL (31.8-35.4); Mean Corpuscular Hemoglobin 28.9 pg (27.0-31.2); Mean Corpuscular Volume 86.8 fl (81-99); Nucleated Red Blood Cells % 0 %; Platelet Count 331 K/mm3 (142-424); Red Blood Count 5.22 M/mm3 (4.20-5.40); Red Cell Distribution Width-SD 41.5 fL; White Blood Count 9.7 K/mm3 (4.8-10.8)
[2025-05-01] MEDS: KETOROLAC 30MG/ML VIAL 30 MG IV (19:19)
[2025-05-01] MEDS: PROCHLORPERAZINE 10MG/2ML VIAL 5 MG IV (19:19)
[2025-05-01] MEDS: DEXAMETHASONE 4MG/ML 1ML VIAL 8 MG IV (19:21)
[2025-05-01] MEDS: 0.9 % SODIUM CHLORIDE 1000ML 1,000 ML 999 ML IV (19:23)
[2025-05-01 19:49] LABS: Albumin Level 4.5 g/dl (3.5-5.0); Chloride 102 mmol/L (98-107); Potassium 4.2 mmoL/L (3.5-5.1); Sodium 139 mmol/L (136-145)
[2025-05-01 19:51] LABS: Blood Urea Nitrogen 17 mg/dl (7-17); Creatinine Clearance Estimated 121 mL/min (50-200); Creatinine,Serum 0.70 mg/dl (0.52-1.04); Estimated Glomerular Filt Rate 97 ml/min (>60); GFR (African American) 117 ML/MIN (>60)
[2025-05-01 19:52] LABS: Alanine Aminotransferase 32 U/L (12-78); Albumin/Globulin Ratio 1.6 (1.1-1.8); Alkaline Phosphatase 89 U/L (38-126); Anion Gap 14.2 mEq/L (5-15); Aspartate Amino Transferase 35 U/L (14-36); Bilirubin,Total 0.4 mg/dl (0.2-1.3); Calcium 9.3 mg/dl (8.4-10.2); Carbon Dioxide 27 mmol/L (22.0-30.0); Globulin 2.9 g/dL (1.3-3.2); Glucose 101 mg/dl (74-100); Lipase 97 U/L (23-300); Magnesium 1.9 mg/dl (1.6-2.3); Total Protein,Serum 7.4 g/dl (6.3-8.2)
[2025-05-01 19:58] LABS: Urine Pregnancy, HCG Qual. Negative (Negative)
[2025-05-01 22:12] VITALS: BP 126/60; PULSE 68; RESP 20; TEMP 36.7; O2SAT 98
== END 2025-05-01 22:13 | disposition home or self-care (01) ==
PROVIDERS: Nurse Practitioner; Emergency Provider Student in an Organized Health Care Education/Training Program; PCP Family Medicine
DX: S06.0X0A Concussion without loss of consciousness, initial encounter (principal); R51.9 Headache, unspecified; R11.0 Nausea; R42 Dizziness and giddiness; F17.210 Nicotine dependence, cigarettes, uncomplicated; W22.8XXA Striking against or struck by other objects, initial encounter
CPT/HCPCS: 70450; 80053; 81025; 83690; 83735; 85025; 96361; 96374; 96375; 99284; J0780; J1100; J1200; J1885; J7030

== ENCOUNTER 2025-05-31 09:07 | Outpatient (CLI) | payer OTHER, SELFPAY | END 2025-05-31 23:59 | LOC: LAB.DROPOF 06-02 09:08 | PROVIDERS: PCP Nurse Practitioner; Visit Provider Nurse Practitioner | DX: R10.A1 Flank pain, right side (principal); R31.9 Hematuria, unspecified | CPT/HCPCS: 87086 ==

== ENCOUNTER 2025-06-01 21:14 | Emergency (ER) | payer OTHER, SELFPAY ==
[2025-06-01] VITALS (7 sets, daily range): BP systolic 109–142; BP diastolic 74–83; PULSE 63–107; RESP 22; TEMP 36.8; O2SAT 94–97; BMI 47.2
--- OUTSIDE RECORDS SUMMARY | 2025-06-01 21:41 | XMS_ITS | Clinical Summary ---
Author Organization [facility] Address [address] [place] [phone] Phone Care Team Providers Care Business And Marketing Teacher Name Role Phone Alpesh Ngo MD Primary Care Provider [phone] Allergies Active Allergy Reactions Criticality Noted Date [...] on file Sexual Orientation Not on file Last Filed Vital Signs Vital Sign Reading [...] HPV/Pap Cotest 2022 COVID-19 Vaccine (1 - 2024-2 6 season) 2025 Influenza Vaccine (#1) 2025 Meningococcal B Vaccine Aged Out No l onger eligible based on patient's age to complete this topic Care Teams Business And Marketing Teacher Relationship Specialty Start Date End Date Alpesh Ngo MD PCP - General Family Medicine 08/07/24
[2025-06-01 21:48] LABS: Microscopic, Urine URINE MICROSCOPIC (MICROSCOPIC)
[2025-06-01 21:53] LABS: Bilirubin,Urine Negative (Negative); Color,Urine YELLOW (Yellow); Glucose,Urine (UA) Negative (Negative); Ketones,Urine Negative (Negative); Leukocyte Esterase,Urine Negative (Negative); PH,Urine 5.5 (5.0-8.5); Protein,Urine Negative (Negative); Specific Gravity, Urine 1.025 (1.005-1.030); Urobilinogen,Urine 0.2 EU/dl (0.2)
[2025-06-01 22:03] LABS: Urine Pregnancy, HCG Qual. Negative (Negative)
[2025-06-01 22:05] LABS: Hematocrit 46.5 % (37.0-47.0); Hemoglobin 15.6 g/dL (12.2-16.2); Immature Granulocytes % 0.3 %; Mean Corpuscular HGB Conc 33.5 g/dL (31.8-35.4); Mean Corpuscular Hemoglobin 28.7 pg (27.0-31.2); Mean Corpuscular Volume 85.6 fl (81-99); Nucleated Red Blood Cells % 0 %; Platelet Count 316 K/mm3 (142-424); Red Blood Count 5.43 M/mm3 (4.20-5.40); Red Cell Distribution Width-SD 38.9 fL; White Blood Count 8.7 K/mm3 (4.8-10.8)
[2025-06-01 22:08] LABS: Lactate Venous 1.5 mmol/L (0.4-2.0); VBG HCO3 24.3 mmol/L (23-30); VBG PCO2 46.8 mmol/L (35-51); VBG PH 7.33 mmol/L (7.31-7.41); VBG PO2 50.3 mmol/L (28-40)
[2025-06-01 22:10] LABS: Albumin Level 4.6 g/dl (3.5-5.0); Chloride 100 mmol/L (98-107); Sodium 129 mmol/L (136-145)
[2025-06-01 22:11] LABS: Potassium 4.2 mmoL/L (3.5-5.1)
[2025-06-01 22:13] LABS: Alanine Aminotransferase 57 U/L (12-78); Albumin/Globulin Ratio 1.5 (1.1-1.8); Alkaline Phosphatase 113 U/L (38-126); Aspartate Amino Transferase 40 U/L (14-36); Bilirubin,Total 0.6 mg/dl (0.2-1.3); Blood Urea Nitrogen 14 mg/dl (7-17); Calcium 9.0 mg/dl (8.4-10.2); Creatinine Clearance Estimated 121 mL/min (50-200); Creatinine,Serum 0.70 mg/dl (0.52-1.04); Estimated Glomerular Filt Rate 97 ml/min (>60); GFR (African American) 117 ML/MIN (>60); Globulin 3.1 g/dL (1.3-3.2); Glucose 104 mg/dl (74-100); Lipase 58 U/L (23-300); Total Protein,Serum 7.7 g/dl (6.3-8.2)
[2025-06-01 22:29] LABS: Bacteria,Urine 4+ /lpf; Mucus,Urine 3+ /lpf
--- NOTE | 2025-06-01 22:39 | CT_ITS ---
PROCEDURE INFORMATION: Exam: CT Abdomen And Pelvis With Contrast Exam date and time: 06/01/2025 11:25 PM Age: 34 years old Clinical indication: Abdominal pain; Additional info: Rlq abdominal tenderness TECHNIQUE: Imaging protocol: Computed tomography of the abdomen and pelvis with contrast. Radiation optimization: All CT scans at this facility use at least one of these dose optimization techniques: automated exposure control; mA and/or kV adjustment per patient size (includes targeted exams where dose is matched to clinical indication); or iterative reconstruction. Contrast material: ISOVUE; Contrast volume: 75 ml; Contrast route: IV; COMPARISON: CT ABDOMEN PELVIS W CON 03/27/2019 3:48 AM FINDINGS: Lungs: Lung bases are clear. Liver: Fatty liver changes with associated hepatomegaly measuring 16.5 cm. Liver otherwise unremarkable. Gallbladder and biliary ducts: Normal. No calcified stones. No ductal dilation. Pancreas: Normal. No ductal dilation. Spleen: Normal. No splenomegaly. Adrenal glands: Normal. No mass. Kidneys and ureters: A 1 mm stone noted in the mid left kidney. Kidneys and ureters otherwise unremarkable with no obstructing stones or uropathy. Stomach and bowel: Dilated segment of small bowel in the lateral left midabdomen with mild fold thickening measuring up to 3.7 cm in caliber. There is transition to nondilated more distal bowel loops. Bowel loops proximal to this dilated segment are also nondilated. GI tract structures otherwise unremarkable with no evident wall thickening allowing for incomplete distention. Appendix: Appendix is normal. No evidence of appendicitis. Intraperitoneal space: Unremarkable. No free air. No significant fluid collection. Vasculature: Unremarkable. No abdominal aortic aneurysm. Lymph nodes: Unremarkable. No enlarged lymph nodes. Urinary bladder: Unremarkable as visualized. Reproductive: Unremarkable as visualized. Bones/joints: Unremarkable. No acute fracture. Soft tissues: Unremarkable. IMPRESSION: Dilated segment of small bowel in the lateral left midabdomen with mild fold thickening measuring up to 3.7 cm in caliber. There is transition to nondilated more distal bowel loops. Bowel loops proximal to this dilated segment are also nondilated. This dilated segment is nonspecific and may be a transient distension but might also reflect a segmental focal ileus possibly due to a enteritis. A developing low-grade proximal small bowel obstruction can not be entirely excluded in the proper clinical setting. Consider short-term follow-up x-rays of the abdomen or CT if persistent or worsening symptoms.
--- NOTE | 2025-06-01 22:54 | [facility].EDGENADL ---
Discharge Plan Disposition Patient Disposition: Home, Self-Care Prescriptions Prescriptions: No Action cefuroxime axetil 500 mg tablet 500 mg PO BID Qty: 14 0RF Referrals Follow up/Referrals: Alpesh Ngo MD [Primary Care Provider, Family Practice] - See instructions Activity Restrictions/Add. Instructions Additional Instructions/Restrictions: Please follow-up with your primary care provider. Please return to the emergency department if you develop any new or worsening symptoms or become concerned for your health. Clinical Impressions Clinical Impression: Enteritis, Abdominal pain, RLQ Stand Alone Forms Stand Alone Forms: Work/School Release Instructions Patient Instructions: DI for Acute Abdominal Pain Print Language Print Language: Slovak Discharge ED Provider: Ana Rosa Craig Adult HPI General Chief complaint: Abdominal Pain Stated complaint: back and abdominal pain Time Seen by Provider: 06/01/25 21:55 Mode of Arrival: Ambulatory Source of Information: Patient Description of Symptoms (Recalled from ER Triage Doc. by RN): pt reports severe cramping that began thursday, pt reports she was seen at her PCP and began getting treated for a UTI and had imagining ordered. pt reports 40mins ago she began haing a burning sensation and constant cramping in her right lower quadrant,flank and radiating into her back pt reports being worried about an ectopic or kidney stone. History of Present Illness HPI narrative: Patient is a 34-year-old female with no significant past medical history except for PCOS who presented to the emergency department with abdominal pain. Patient states that she is having right lower quadrant abdominal pain that is intermittent in nature but has become constant radiates into her right back. Patient states that her pain feels like a burning sensation as well but is not having any dysuria or urinary symptoms. Patient states that she does not have a history of kidney stones. Patient states that she has irregular periods, her period was 2 months ago. Patient not having any vaginal bleeding. Patient does report some mild increased vaginal discharge but has not had any painful intercourse or any other pelvic complaints at this time. Patient is not having any abnormal vaginal bleeding. Patient reports nausea but no vomiting. Patient states that she has had a few episodes of loose stools. Patient denies any previous abdominal surgeries. Related Data Previous Rx's ?Medication ?Instructions ?Recorded cefuroxime axetil 500 mg tablet 500 mg PO BID #14 tabs 05/31/25 Allergies Allergy/AdvReac Type Severity Reaction Status Date / Time mushroom Allergy Intermediate Hives Verified 05/31/25 15:03 Penicillins (PENICILLINS) Allergy Intermediate I-HIVES Verified 05/31/25 15:03 raspberry Allergy Intermediate Hives Verified 05/31/25 15:03 ketorolac (From Toradol) Allergy Mild Hives Verified 05/31/25 15:12 PFSH PFS Disclaimer: The information contained in this section may have been updated after the patient was seen, as this information can be updated by other users. Medical History Urinary tract infection Anxiety Depression History of PCOS Asthma Surgical History No significant past surgical history Family History Family/Other No significant family history Social History Smoking Status: Current every day smoker tobacco type: cigarettes packs per day: 1 alcohol intake: never substance use type: marijuana current occupational status: employed Travel in the last 8 weeks?: None household members: other housing: house Have you lived/traveled outside [place] in past 30 days?: No Contact w/someone who lives/traveled outside [place] past 30 days?: No Exposure to someone with infectious disease in past 14 days?: No Do you have a fever (greater than 100.4 F or 38 C)?: No Have you tested positive for COVID-19?: No Exposed to someone with COVID-19 in past 14 days?: No Do you have a sore throat?: No Do you have a cough?: No Do you have any weakness?: No Do you have any diarrhea?: No Are you experiencing any unusual bleeding?: No Do you have any muscle aches/pain?: Yes Do you have any abdominal pain?: Yes Are you experiencing loss of taste or smell?: No Other Medical History Have you received the Flu Vaccine for this season: Yes Have you received the Pneumonia Vaccine: No ROS Obtained: Yes All systems reviewed & no additional complaints except as documented and Yes Systems reviewed as appropriate & no additional complaints except as documented Physical Exam General General appearance: alert and in no apparent distress Head Head exam: atraumatic, normocephalic and normal inspection Eye Eye exam: Present normal appearance, PERRL and EOMI; Absent scleral icterus ENT ENT exam: Present normal exam and normal external ear exam Neck Neck exam: Present normal inspection and full ROM Chest Chest inspection: Present normal inspection and symmetric chest wall rise Respiratory Respiratory exam: Present normal lung sounds bilaterally; Absent respiratory distress or wheezes Cardiovascular Cardiovascular exam: Present regular rate, normal rhythm and normal heart sounds Abdominal Exam Abdominal exam: Present soft, distention and tenderness (rlq tenderness); Absent guarding or rebound Extremities Exam Extremities exam: Present normal inspection and full ROM Back Exam Back exam: Present normal inspection and full ROM Neurological Exam Neurological exam: Present alert and oriented X3 Psychiatric Psychiatric exam: Present normal affect and normal mood Skin Skin exam: Present warm and dry Medical Decision Making Medical Records Medical records reviewed: Yes I reviewed the patient's medical records. Screening: Per USPSTF and CDC recommendations, given the prevalence of disease in our region, it is our hospital?s policy to screen for HIV and viral Hepatitis for all patients aged 18 and over and those with ongoing risk factors. Eddie Inquiry Pt receiving controlled substance: No Vital Signs: 06/01/25 21:46 06/01/25 22:30 06/01/25 22:30 Temperature 98.2 F Temperature Source Temporal Artery Scan Pulse Rate 63 Pulse Rate [Right] 107 H Respiratory Rate 22 Blood Pressure 118/74 Blood Pressure [Right Arm] 142/83 H Blood Pressure Mean 88 Blood Pressure Mean [Right Arm] 102 Blood Pressure Source Blood Pressure Position 02 Sat by Pulse Oximetry 95 96 Oxygen Delivery Method 06/01/25 22:45 06/01/25 23:00 06/01/25 23:00 Temperature Temperature Source Pulse Rate 103 H 73 Pulse Rate [Right] Respiratory Rate Blood Pressure 109/76 L Blood Pressure [Right Arm] Blood Pressure Mean 83 Blood Pressure Mean [Right Arm] Blood Pressure Source Blood Pressure Position 02 Sat by Pulse Oximetry 96 96 Oxygen Delivery Method 06/01/25 23:15 06/01/25 23:30 06/01/25 23:30 Temperature Temperature Source Pulse Rate 72 79 Pulse Rate [Right] Respiratory Rate Blood Pressure 110/82 Blood Pressure [Right Arm] Blood Pressure Mean 89 Blood Pressure Mean [Right Arm] Blood Pressure Source Blood Pressure Position 02 Sat by Pulse Oximetry 94 L 97 Oxygen Delivery Method 06/01/25 23:45 06/02/25 00:00 06/02/25 00:00 Temperature Temperature Source Pulse Rate 71 66 Pulse Rate [Right] Respiratory Rate Blood Pressure 105/64 L Blood Pressure [Right Arm] Blood Pressure Mean 86 Blood Pressure Mean [Right Arm] Blood Pressure Source Blood Pressure Position 02 Sat by Pulse Oximetry 95 95 Oxygen Delivery Method 06/02/25 00:15 06/02/25 00:30 06/02/25 00:30 Temperature Temperature Source Pulse Rate 61 56 L Pulse Rate [Right] Respiratory Rate Blood Pressure 111/71 Blood Pressure [Right Arm] Blood Pressure Mean 85 Blood Pressure Mean [Right Arm] Blood Pressure Source Blood Pressure Position 02 Sat by Pulse Oximetry 98 98 Oxygen Delivery Method 06/02/25 00:45 06/02/25 01:04 Temperature 98.1 F Temperature Source Oral Pulse Rate 70 61 Pulse Rate [Right] Respiratory Rate 16 Blood Pressure 111/71 Blood Pressure [Right Arm] Blood Pressure Mean Blood Pressure Mean [Right Arm] Blood Pressure Source Automatic Cuff Blood Pressure Position Sitting 02 Sat by Pulse Oximetry 98 Oxygen Delivery Method Room Air Lab Data Lab Results 06/01/25 21:40: Urine Color Yellow, Urine Appearance Clear, Urine pH 5.5, Ur Specific [place] 1.025, Urine Protein Negative, Urine Glucose (UA) Negative, Urine Ketones Negative, Urine Blood 1+ A, Urine Nitrate Negative, Urine Bilirubin Negative, Urine Urobilinogen 0.2, Ur Leukocyte Esterase Negative, Urine RBC 3-5, Urine WBC 3-5, Ur Squamous Epith Cells 10-20, Urine Bacteria 4+, Urine Mucus 3+, Urine HCG, Qual Negative 06/01/25 21:54: WBC 8.7, RBC 5.43 H, Hgb 15.6, Hct 46.5, MCV 85.6, MCH 28.7, MCHC 33.5, RDW 12.6, Plt Count 316, MPV 10.5 H, Neut % (Auto) 71.5, Lymph % (Auto) 22.0, Taliaferro % (Auto) 5.0, Eos % (Auto) 0.6, Baso % (Auto) 0.6, Neut # (Auto) 6.2, Lymph # (Auto) 1.9, Taliaferro # (Auto) 0.4, Eos # (Auto) 0.1, Baso # (Auto) 0.1, VBG pH 7.33, VBG pCO2 46.8, VBG pO2 50.3 H, VBG HCO3 24.3, VBG Total CO2 25.8, VBG O2 Saturation 86.3 H, VBG Base Excess -1.5, VBG Lactic Acid 1.5, Sodium 129 L, Potassium 4.2, Chloride 100, Carbon Dioxide 27, Anion Gap 6.2, BUN 14, Creatinine 0.70, Estimated Creat Clear 121, Estimated GFR 97, Est GFR ( Amer) 117, Glucose 104 H, Calcium 9.0, Total Bilirubin 0.6, AST 40 H, ALT 57, Alkaline Phosphatase 113, Total Protein 7.7, Albumin 4.6, Globulin 3.1, Albumin/Globulin Ratio 1.5, Lipase 58, HCV Ab JUAN PABLO w/Rflx PCR Qn Negative, HIV Ag/Ab Combo Qual Negative 06/01/25 21:54 06/01/25 21:54 Orders (Tests/Meds): ED MEDICATIONS Discontinued Medications Generic Name Dose Route Start Last Admin Trade Name Freq PRN Reason Stop Dose Admin Ceftriaxone Sodium 2 gm/ 100 mls @ 200 mls/hr 06/01/25 22:45 06/01/25 23:37 Sodium Chloride IV 06/01/25 23:14 Infused ONCE ONE Infusion Sodium Chloride 1,000 mls @ 999 mls/hr 06/01/25 23:17 06/02/25 00:55 Sod Chlor 0.9% 1000ml Bag IV 06/02/25 00:17 Infused .Q1H1M ONE Infusion Iopamidol 75 ml 06/01/25 23:28 06/01/25 23:29 Iopamidol-370 (76%);100ml Bottle IV 06/01/25 23:29 75 ml ONCE ONE Administration Morphine Sulfate 4 mg 06/01/25 22:39 06/01/25 23:02 Morphine 2mg/Ml Syringe IV 06/01/25 22:40 4 mg ONCE ONE Administration Ondansetron HCl 4 mg 06/01/25 22:39 06/01/25 23:02 Ondansetron 4mg/2ml Vial IV 06/01/25 22:40 4 mg ONCE ONE Administration Sodium Chloride 10 ml 06/01/25 23:28 06/01/25 23:29 Sodium Chloride 0.9% 10ml Syr (Rad Only) IV 07/01/25 23:27 10 ml NEEDED PRN Administration Maintain IV Site ORDERS Category Date Time Status CT abdomen pelvis w con Stat Cat Scan 06/01/25 22:39 Completed CBC w/Auto Diff [Complete Blood Count Auto Diff] Stat Lab 06/01/25 21:54 Completed CMP [Comprehensive Metabolic Panel] Stat Lab 06/01/25 21:54 Completed HIV Combo Stat Lab 06/01/25 21:54 Completed Hepatitis C Ab Qual. W/ RFX Stat Lab 06/01/25 21:54 Completed Lipase Stat Lab 06/01/25 21:54 Completed UA [Urinalysis and Microscopic] Stat Lab 06/01/25 21:40 Completed Urine Chlam/Gono/Trich ([facility]) Stat Lab 06/01/25 21:40 Received Urine , HCG Qual. Stat Lab 06/01/25 21:40 Completed Urine Culture Stat Micro 06/01/25 21:40 Received VBG [Venous Blood Gas] Stat RT 06/01/25 21:54 Completed Medical Decision Narrative: Patient is a 34-year-old female with no significant past medical history except for PCOS who presented to the emergency department with abdominal pain. On arrival, patient was hemodynamically stable with unremarkable Eitel signs. Differential includes but not limited to: Appendicitis, urinary tract infection, pyelonephritis, infected kidney stone, nephrolithiasis, gastroenteritis, amongst others. Patient's labs were reviewed and interpreted by myself: CBC showed no leukocytosis, hemoglobin was stable. CMP was unremarkable. VBG with no significant acidosis. Glucose normal. UA grossly contaminated but did have 4+ bacteria. test negative. Patient was given morphine, IV fluids as well as Zofran. Given that patient's UA did have some blood, patient was given Rocephin pending CT scan for possible concern for infected kidney stone. Patient CT scan was reviewed and interpreted by myself and showed concern for likely gastroenteritis mention of possible developing bowel obstruction however patient still having bowel movements and has had no associated vomiting. Low concern for bowel obstruction. Patient's pain was improved, patient was given strict return precautions and patient was otherwise discharged home in stable condition. Critical Care Critical Care Time Critical Care Time: No
[2025-06-01 23:02] LABS: Hepatitis C Ab Qual. W/ RFX NEGATIVE (Negative)
[2025-06-01] MEDS: MORPHINE 2MG/ML SYRINGE 4 MG IV (23:02)
[2025-06-01] MEDS: ONDANSETRON 4MG/2ML VIAL 4 MG IV (23:02)
[2025-06-01 23:19] LABS: Anion Gap 6.2 mEq/L (5-15); Carbon Dioxide 27 mmol/L (22.0-30.0)
[2025-06-01] MEDS: SODIUM CHLORIDE 0.9% 10ML SYR (RAD ONLY) 10 ML IV (23:29)
[2025-06-01] MEDS: IOPAMIDOL-370 (76%);100ML BOTTLE 75 ML IV (23:29)
[2025-06-01] MEDS: 0.9 % SODIUM CHLORIDE 1000ML 1,000 ML 999 ML IV (23:35)
[2025-06-02] VITALS: BP 105/64; PULSE 66; O2SAT 95
[2025-06-02 00:15] VITALS: PULSE 61; O2SAT 98
[2025-06-02 00:30] VITALS: BP 111/71; PULSE 56; O2SAT 98
[2025-06-02 00:45] VITALS: PULSE 70; O2SAT 98
[2025-06-02 01:04] VITALS: BP 111/71; PULSE 61; RESP 16; TEMP 36.7; O2SAT 96
== END 2025-06-02 01:06 | disposition home or self-care (01) ==
PROVIDERS: Emergency Medicine; Emergency Provider Student in an Organized Health Care Education/Training Program; PCP Family Medicine
DX: R10.31 Right lower quadrant pain (principal); E87.1 Hypo-osmolality and hyponatremia; K52.9 Noninfective gastroenteritis and colitis, unspecified; F17.210 Nicotine dependence, cigarettes, uncomplicated
CPT/HCPCS: 74177; 80053; 81001; 81025; 82803; 83690; 85025; 86803; 87086; 87389; 87491; 87591; 87661; 96361; 96365; 96375; 99285; J0696; J2270; J2405; J7030; Q9967